=== PATIENT | male | born 1955 | race Caucasian/White ===

== ENCOUNTER 2020-01-12 13:11 | Emergency (ER) | payer MEDICARE, OTHER, SELFPAY ==
[2020-01-12 13:13] VITALS: BP 147/99; PULSE 81; RESP 18; TEMP 36.9; O2SAT 98; BMI 35.2
--- NOTE | 2020-01-12 14:05 | ED.VIS.GEN ---
History of Present Illness Chief Complaint: Flank Pain Informant: Patient Onset: Today, Hours Context: Sudden Onset Timing: Continuous, Waxes and wanes Quality: Pain Location: Flank radiating anteriorly Current Severity: Severe Maximum Severity: Severe Worsened by: Nothing Relieved by: Nothing Associated Symptoms: Nausea and vomiting Narrative: Velasquez is a 64-year-old male who recently had a cervical fusion anterior approach who presents with acute flank pain rating anteriorly with mild hematuria. He does report nausea vomiting. He denies fever, chills or night sweats. He denies known history of ureteral/renal lithiasis. He thinks he may have had one 13 years ago. He denies headache, visual, ocular auditory symptoms. He denies cardiac respiratory symptoms. He denies any significant past medical history. He has no contraindication to NSAIDs. Prior similar symptoms: No Recent Illness/Hospitalization: Yes - Past Medical History (1) No significant past medical history Status: Acute Past Medical History - Allergies and Home Meds Allergies/Adverse Reactions: Allergies CORNEL Inhibitors Allergy (Verified 01/12/20 14:14) Unknown MUSCLE WEAKNESS Primary Care Physician: Tres Lopez DO [Primary Care Provider] - Prior records reviewed: No Past Medical History: None Surgical History: - - Focal effusion at [facility] Lives: Spouse/ Significant Other Smoking Status: Former smoker Alcohol: Rare Drugs: None Review of Systems General: Denies: Chills, Fever, Malaise, Sweats ENT: Denies: Rhinorrhea, Sore throat Cardiovascular: Denies: Chest pain, Palpitations Respiratory: Reports: Cough - Patient reports cough is chronic.. Denies: Dyspnea, Sputum, Dyspnea on exertion Gastrointestinal: Reports: Abdominal pain, Nausea, Vomiting. Denies: Diarrhea, Melena, Hematochezia Genitourinary: Reports: Hematuria. Denies: Dysuria, Frequency Musculoskeletal: Reports: Back pain. Denies: Myalgias, Arthralgias, Neck pain, Swelling, Extremity Pain, -, - Skin: Denies: Rash, Wounds Neurological: Denies: Headache, Weakness, Numbness Hematologic: Denies: Easy bruising, Easy bleeding Physical Exam Vital Signs/Narrative: Vital Signs Temp Pulse Resp BP Pulse Ox 01/12/20 13:13 98.5 F 81 18 147/99 H 98 Inital Vital Signs reviewed: Yes General: Well nourished, Well developed, Acute Distress Head: Normocephalic, Atraumatic. Negative for: Trauma, Tenderness Eyes: Perrl, EOMI. Negative for: Pale conjunctiva, Scleral icterus ENT: No rhinorrhea, TM's clear Neck: Supple, Nontender, No lymphadenopathy, No JVD, - - Scar inferior anterior right neck due to recent cervical fusion Cardiovascular: Regular rate, Regular rhythm, No murmurs, Normal S1, Normal S2 Respiratory: No distress, CTA bilaterally, Chest nontender Abdomen: Soft, Nontender, Nondistended, Normal bowel sounds Extremities: Nontender, No edema Skin: Normal color, No rash, No Trauma. Negative for: Cyanosis, Diaphoresis, Jaundice Neurological: Alert, Oriented x3, Cranial nerves II-XII grossly intact, Normal Strength, Normal Sensation Psychological: Normal affect Diagnostic/Tx/Re-eval Impressions Abdomen/Pelvis CT 01/12/20 15:07 IMPRESSION: There is a 3.2 mm stone at the left UVJ causing left-sided hydronephrosis, and hydroureter with perinephric and periureteral inflammatory stranding. Remaining solid organs of the abdomen are unremarkable Small bowel ileus Sigmoid diverticulosis Degenerative bony changes Electronically Signed: Aayush Jurado MD at 15:53 EDT , Service support , 01/12/20 15:07 Abdomen/Pelvis without Cont [CT] Stat Laboratory Results 01/12/20 01/12/20 01/12/20 13:21 13:21 15:30 WBC 8.7 RBC 5.24 Hgb 16.0 Hct 46.2 MCV 88.2 MCH 30.5 MCHC 34.6 RDW Std Deviation 37.6 RDW Coeff of Charlie 11.8 Plt Count 333 MPV 9.4 Immature Gran % (Auto) 0.100 Neut % (Auto) 75.4 H Lymph % (Auto) 15.0 L [place] % (Auto) 7.9 Eos % (Auto) 1.0 Baso % (Auto) 0.6 Absolute Neuts (auto) 6.5 Absolute Lymphs (auto) 1.30 Nucleated RBC % 0 Sodium 137 Potassium 3.8 Chloride 107 Carbon Dioxide 24.0 Anion Gap 6 BUN 16 Creatinine 1.18 Estim Creat Clear Calc 51.56 Est GFR (MDRD) Af Amer 79 Est GFR (MDRD) Non-Af 66 BUN/Creatinine Ratio 13.6 Glucose 99 Calcium 9.0 Urine Color Yellow Urine Clarity Clear Urine pH 6.0 Ur Specific [place] 1.015 Urine Protein Negative Urine Glucose (UA) Normal Urine Ketones 5 H Urine Occult Blood Negative Urine Nitrite Negative Urine Bilirubin Negative Urine Urobilinogen Normal Ur Leukocyte Esterase Negative Urine RBC 0 SEEN Urine WBC 0 SEEN Ur Squamous Epith Cells 0 SEEN Urine Bacteria 0 SEEN Urine Mucus 0 SEEN It was reassessed again at 1800. He is resting comfortably. He was discharged with prescription for Percocet and Naprosyn and referred to urologist. - Medical Decision Making Abrupt onset of flank pain rating anteriorly with nausea and vomiting and hematuria suspect patient has an obstructing ureteral stone. Appropriate blood work was ordered to assess renal function, white count and H&H. He was medicated with 4 mg of Zofran, 4 mg of morphine and 15 mg of Toradol IV push. CT of the abdomen pelvis without contrast was ordered to determine size and location of stone and to verify that patient does have an obstructing stone. Patient was reassessed at 1510. He is not pain-free but states the pain is markedly better. He is no longer writhing pain. He is now smiling talking to his . ED Disposition - Plan for ED Patient: Disposition: Home or Assisted Living Diagnosis: Hydronephrosis with ureteral calculus Instructions: ED Renal Stone w Colic Prescriptions: Naproxen [Naprosyn] 500 mg PO BID #14 tab Prescription Printed Oxycodone HCl/Acetaminophen [Percocet 5/325] 1 tab PO Q6H PRN PRN 5 Days #20 tab PRN Reason: left flank pain Prescription Printed Referrals: Tres Lopez DO [Primary Care Provider] - Pk Boyd MD [STAFF PHYSICIAN] - 5-7 Days
[2020-01-12] MEDS: Morphine 4 MG/ML Syringe IV (14:18)
[2020-01-12] MEDS: Ondansetron 4 MG/2 ML Vial IV (14:18)
[2020-01-12] MEDS: 0.9% Normal Saline 1,000 ML 250 ML IV (14:18)
[2020-01-12] MEDS: Ketorolac 30 MG/ML Syringe 15 MG IV (14:18)
[2020-01-12 14:58] LABS: Absolute Neutrophil Count 6.5 X10^3/uL (2.0-7.7); Basophil# 0.05 X10^3/uL; Basophil% 0.6 % (0-1); Eosinophil# 0.09 X10^3/uL; Hematocrit 46.2 % (40-54); Mean Corp Hgb Conc 34.6 g/dL (32-36); Mean Corpuscular Hgb 30.5 pg (27.0-32.0); Mean Corpuscular Volume 88.2 fL (80-94); Mean Platelet Vol. 9.4 fl (6.2-12.0); Monocyte# 0.69 X10^3/uL; Monocyte% 7.9 % (0-10); NRBC Flagged by Analyzer 0 % (0-5); Neutrophil # 6.54 X10^3/uL (2.7-7.7); Neutrophil % 75.4 % (47-70); Platelet Count 333 K/mm3 (150-450); RBC Distribution Width CV 11.8 % (11.6-14.6); RBC Distribution Width SD 37.6 fl (35.1-43.9); Red Blood Count 5.24 M/mm3 (4.6-6.2); White Blood Count 8.7 K/mm3 (4.4-11.0)
--- NOTE | 2020-01-12 15:07 | CT_ITS ---
STUDY: CT ABDOMEN AND PELVIS WITHOUT CONTRAST REASON FOR EXAM: Male, 64 years old. LEFT FLANK PAIN, N/V, hematuria. Hx of HTN and kidney stones. Prior lumbar recon, cervical fusion, lt shoulder replacement and rt hip replacement RADIATION DOSAGE (If Supplied By Facility): CTDIvol = ( 24.21 ) mGy, DLP = ( 1176.41 ) mGycm TECHNIQUE: Transaxial images were obtained from the dome of the diaphragm to the symphysis pubis without oral contrast, and without intravenous contrast. Sagittal and coronal images were reconstructed. Individualized dose optimization techniques were used for this CT. COMPARISON: None. FINDINGS: The visualized lung bases are unremarkable. The visualized portions of the heart are within normal limits. Normal liver. Normal gallbladder and extrahepatic biliary system. Normal spleen. Normal pancreas. Normal bilateral adrenal glands. Normal right kidney. Left kidney shows hydronephrosis, hydroureter, perinephric and periureteral inflammatory stranding. Findings are due to a 3.2 mm stone at the left UVJ seen on axial image 94, and coronal recon image 86. Normal visualized stomach. Multiple nondistended fluid-filled small bowel loops are noted consistent with ileus. Scattered sigmoid diverticulosis without CT evidence of acute diverticulitis. The appendix is visualized and appears normal. Appendix best seen on coronal recon image 72 Normal abdominal aorta. Normal inferior vena cava. Normal retroperitoneum. Normal urinary bladder. Normal abdominal wall. There are diffuse degenerative changes of the visualized lumbar spine, and pelvis, replaced right hip joint. CT/Abdomen/Pelvis without Cont IMPRESSION: There is a 3.2 mm stone at the left UVJ causing left-sided hydronephrosis, and hydroureter with perinephric and periureteral inflammatory stranding. Remaining solid organs of the abdomen are unremarkable Small bowel ileus Sigmoid diverticulosis Degenerative bony changes Electronically Signed: Aayush Jurado MD at 15:53 EDT , Service support ,
[2020-01-12 15:13] LABS: Anion Gap 6 (5-15); BUN 16 mg/dL (7-18); BUN/Creat Ratio 13.6 RATIO (10-20); Chloride 107 mmol/L (98-107); Creatinine, Serum 1.18 mg/dL (0.70-1.30); EST Glomerular Filtration Rate 66 mL/min (>60); Est Glom Filt Rate - Afr Amer 79 mL/min (>60); Estimated Creatinine Clearance 51.56 ml/min; Glucose 99 mg/dL (74-106); Potassium 3.8 mmol/L (3.5-5.1); Sodium Level 137 mmol/L (136-145)
[2020-01-12 15:43] LABS: Bacteria 0 SEEN /hpf (None Seen); Mucous, Urine 0 SEEN /hpf (<or=2+); Red Blood Cells-Urine 0 SEEN /hpf (0-5); Squamous Epithelial Cells - UA 0 SEEN /hpf (0-5); White Blood Cells 0 SEEN /hpf (0-5)
[2020-01-12 15:47] LABS: Color, Urine Yellow (Yellow); Glucose, Dipstick Normal (Normal); Ketone-Dipstick 5 mg/dl (Negative); Leukocyte Esterase-Dipstick Negative /ul (Negative); Nitrite-Dipstick Negative (Negative); Occult Blood-Urine Negative /ul (Negative); Protein-Dipstick Negative (Negative); Specific Gravity, Urine 1.015 (1.002-1.030); Urine Bilirubin Dipstick Negative (Negative); Urine Clarity Clear (Clear); Urine Urobilinogen Normal (Normal)
[2020-01-12 15:50] VITALS: BP 158/84; PULSE 69; RESP 18; O2SAT 99
[2020-01-12 17:46] VITALS: BP 156/90; PULSE 62; RESP 18; O2SAT 97
== END 2020-01-12 18:23 | disposition home or self-care (01) ==
PROVIDERS: Emergency Provider Emergency Medicine; PCP Student in an Organized Health Care Education/Training Program
DX: N13.2 Hydronephrosis with renal and ureteral calculous obstruction (principal); Z87.891 Personal history of nicotine dependence
CPT/HCPCS: 74176; 80048; 81001; 85025; 96361; 96374; 96375; 99283; J7030; A4216; J2405

== ENCOUNTER → 2020-02-07 | Outpatient (CLI) | payer MEDICARE, OTHER, SELFPAY ==
[2020-01-12 13:13] VITALS: BMI 35.2
--- NOTE | 2020-02-07 10:05 | RAD_ITS ---
STUDY: X-RAY - ABDOMEN/PELVIS REASON FOR EXAM: Male, 64 years old. KIDNEY STONE TECHNIQUE: Two AP supine views of the abdomen and pelvis. COMPARISON: None. FINDINGS: Normal visualized lung bases. There is an unremarkable bowel gas pattern. There is no demonstrated free abdominal air. The visualized liver, spleen and kidneys are grossly normal in size and morphology. No suspicious calcifications overlying either renal shadow, or along the expected course of either ureter. However, one could be obscured by the overlying bowel gas and stool Normal soft tissue structures. There are diffuse degenerative changes of the visualized lumbar spine. Replaced right hip joint free of complication RAD/Abdomen Single View IMPRESSION: No acute findings Electronically Signed: Aayush Jurado MD at 11:00 EDT , Service support ,
--- NOTE | 2020-02-07 11:08 | CT_ITS ---
STUDY: CT ABDOMEN AND PELVIS WITHOUT CONTRAST REASON FOR EXAM: Male, 64 years old. Left flank pain and hematuria 3 weeks ago. Prior hip replacement, hypertension. RADIATION DOSAGE (If Supplied By Facility): CTDIvol = ( 19.23 ) mGy, DLP = ( 931.78 ) mGycm TECHNIQUE: Transaxial images were obtained from the dome of the diaphragm to the symphysis pubis without oral contrast, and without intravenous contrast. Sagittal and coronal images were reconstructed. Individualized dose optimization techniques were used for this CT. COMPARISON: 01/12/2020 FINDINGS: The visualized lung bases are unremarkable. The visualized portions of the heart are within normal limits. Normal liver. Normal gallbladder and extrahepatic biliary system. Normal spleen. Normal pancreas. Normal bilateral adrenal glands. Normal right kidney. Normal left kidney. Normal visualized stomach. Normal small intestine. There are multiple colonic diverticula consistent with diverticulosis. The appendix is visualized and appears normal. Appendix best seen on coronal recon images 69-75 Normal abdominal aorta. Normal inferior vena cava. Normal retroperitoneum. Normal urinary bladder. Normal abdominal wall. There are diffuse degenerative changes of the visualized lumbar spine, and pelvis. Replaced right hip joint free of complication CT/Abdomen/Pelvis without Cont IMPRESSION: No suspicious solid organ abnormality, specifically, no obstructive uropathy. Sigmoid diverticulosis No free intraperitoneal fluid, air, or suspicious adenopathy Electronically Signed: Aayush Jurado MD at 11:45 EDT , Service support ,
== END | disposition home or self-care (01) ==
LOC: RAD 09:48 → CT 11:07
PROVIDERS: PCP Student in an Organized Health Care Education/Training Program; Referring Provider Nurse Practitioner Adult Health; Visit Provider Nurse Practitioner Adult Health
DX: N20.1 Calculus of ureter (principal)
CPT/HCPCS: 74018; 74176

== ENCOUNTER → 2020-03-01 | Outpatient (CLI) | payer MEDICARE, OTHER, SELFPAY ==
--- NOTE | 2020-03-01 12:40 | CT_ITS ---
STUDY: CT LOWER EXTREMITY WITHOUT CONTRAST: RIGHT REASON FOR EXAM: Male, 64 years old. RIGHT KNEE DEFORMITY. KEVEN PROTOCOL. METAL ARTIFACT REDUCTION TECHNIQUE Individualized dose optimization techniques were used for this CT.? TECHNIQUE: Transaxial imaging was sagittal and coronal reconstruction. COMPARISON: None. FINDINGS: He is status post total hip arthroplasty with standard acetabular and femoral components located without periprosthetic fracture or other acute soft tissue abnormality. Multiple well-corticated fragments and one central well-corticated fragment of the greater trochanter. The included right hemipelvis is intact without fracture deformity. 6 mm cyst of the acetabular roof. The knee is located. Negative for fracture of the tibia, fibula or patella. No substantial joint effusion. There is severe narrowing and mild marginal osteophytosis of the medial compartment. There is mild narrowing and marginal osteophytosis of the lateral compartment. Mild narrowing and marginal osteophytosis of the patellofemoral compartment. No soft tissue abnormality. The ankle and hindfoot are located. Normal talonavicular, subtalar and calcaneocuboid articulations. Tibiotalar joint without major arthritic changes. One tiny well corticated fragment anterior lip of the tibia at the tibiotalar joint. Minimal hypertrophic changes at the tip of the medial malleolus. Small benign bone island of the talus otherwise normal talus and calcaneus and navicular. No soft tissue abnormalities. CT/Extremity Lower without Contra IMPRESSION: Status post right total hip arthroplasty with no bone or joint abnormalities. Degenerative arthrosis of the knee as described above. Negative for major arthritic, degenerative or other acute findings of the ankle. Electronically Signed: Nuzhat Pratt MD at 16:08 EDT , Service support ,
== END | disposition home or self-care (01) ==
PROVIDERS: PCP Student in an Organized Health Care Education/Training Program; Referring Provider Specialist; Visit Provider Specialist
DX: M21.161 Varus deformity, not elsewhere classified, right knee (principal)
CPT/HCPCS: 73700

== ENCOUNTER 2020-03-22 07:12 | Observation (INO) | payer MEDICARE, OTHER, SELFPAY ==
[2020-03-01 14:35] LABS: Absolute Lymphocyte Count 1.63 X10^3/uL (0.83-4.51); Absolute Neutrophil Count 2.6 X10^3/uL (2.0-7.7); Basophil# 0.04 X10^3/uL; Basophil% 0.8 % (0-1); Eosinophil# 0.12 X10^3/uL; Eosinophils% 2.5 % (0-5); Hematocrit 45.6 % (40-54); Hemoglobin 15.6 g/dL (13.0-16.5); Lymphocyte # 1.63 X10^3/ul (4.0); Lymphocyte % 33.9 % (19-41); Mean Corp Hgb Conc 34.2 g/dL (32-36); Mean Corpuscular Volume 87.7 fL (80-94); Mean Platelet Vol. 9.5 fl (6.2-12.0); Monocyte# 0.42 X10^3/uL; Monocyte% 8.7 % (0-10); NRBC Flagged by Analyzer 0 % (0-5); Neutrophil # 2.59 X10^3/uL (2.7-7.7); Neutrophil % 53.9 % (47-70); Platelet Count 267 K/mm3 (150-450); RBC Distribution Width CV 12.6 % (11.6-14.6); RBC Distribution Width SD 40.1 fl (35.1-43.9); White Blood Count 4.8 K/mm3 (4.4-11.0)
[2020-03-01 14:48] LABS: Anion Gap 7 (5-15); BUN 17 mg/dL (7-18); BUN/Creat Ratio 16.8 RATIO (10-20); Calcium,Total 8.8 mg/dL (8.5-10.1); Chloride 107 mmol/L (98-107); Creatinine, Serum 1.01 mg/dL (0.70-1.30); EST Glomerular Filtration Rate 79 mL/min (>60); Est Glom Filt Rate - Afr Amer 95 mL/min (>60); Glucose 103 mg/dL (74-106); Potassium 3.6 mmol/L (3.5-5.1); Sodium Level 139 mmol/L (136-145)
[2020-03-01 17:32] LABS: Magnesium 2.4 mg/dL (1.6-2.6); Thyroid Stim Hormone (TSH) 2.01 uIU/mL (0.358-3.74)
--- NOTE | 2020-03-01 22:52 | HP.PCM_ITS ---
History and Physical History and Physical [facility] Patient Name: Johnson Nielson : 1955 From: DAYANA FARFAN PA-C DATE OF SURGERY: 03/22/2020 SCHEDULED PROCEDURE: right total knee arthroplasty HISTORY OF PRESENT ILLNESS: Preoperative history and physical exam was performed on March 01, 2020. This is a 64-year-old male who has had ongoing pain in his right knee for several years. Patient has been dealing with increased right knee pain but is placed and on hold for surgery due to a cervical fusion surgery. Patient has undergone a cervical fusion and has done well. He continues to have significant knee pain on the right. Patient's pain is intermittent and sharp. He has increased pain going up and down stairs and walking. Patient wears a brace on his right knee with some relief. However he has times when he has the brace on and this causes more left knee pain. Patient has had difficult time with activities of daily living including housework, shopping, and leisure activities. He has difficult time going up and down stairs. He has tripped/stumbled due to his knee pain. Patient has attempted rest, ice, heat, elevation, cortisone injections with no relief in symptoms. Patient only had very temporary relief from the injection in both knees in July 2019. Patient has also attempted visco supplementation injections with no relief in symptoms. He is now having difficulty sleeping at nighttime. His pain can reach 7/10 with activities. He has attempted Medrol Dosepak, meloxicam, Tylenol with no relief in symptoms. He has been on tramadol at nighttime. Patient denies previous surgery on the right knee. Patient currently denies any chest pain, shortness of breath, fevers chills, or calf pain. Patient has medical history pertinent for thyroid disease and hypertension. We are obtaining surgical clearance from the primary care physician. After failing conservative measures and discussing all treatment options with Dr. Tej Montague, the patient does wish to proceed with a right total knee arthroplasty. REVIEW OF SYSTEMS: ROS: Const: Denies change in appetite, fever,or weight change. CV: Denies chest pain, heart murmur and irregular heartbeat. Resp: Denies cough, pneumonia, SOB, tuberculosis and wheezing. GI: Denies constipation, diarrhea, difficulty swallowing, heartburn, nausea, bloody stools and vomiting. : Urinary: denies incontinence. Musculo: Reports leg swelling and limp, but denies trouble walking and weakness. Skin: Denies Raynaud's, history of shingles and tattoo. Neuro: Denies ambulatory dysfunction, dizziness, numbness/tingling and tremor. Psych: Denies anxiety, insomnia and stress. Randall/Lymph: Denies anemia, bleeding/bruising tendency and past transfusion. Reviewed, no changes. 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 Personal Habits: Cigarette Use: Former.Alcohol: Has consumed alcohol in the past.Drug Use: Denies Use.Exercise Type: Exercises twice a week. Reviewed, no changes. VITALS: Ht: 64 Wt: 209lb Wt k.802 BMI: 35.9 BP: 152/92 Pulse: 64 Resp: 12 T: 97.6 T: 36.4C ALLERGIES: No Known Drug Allergy MEDICATIONS: Meloxicam 7.5 mg 1 by mouth twice a day, Levothyroxine Sodium 25 mcg 1 by mouth every day, Norvasc 10 mg 1 tab PO daily, Aspirin 81 81 mg 1 po qd prn, Tramadol HCL 50 mg 1-2 by mouth every 6 hours as needed pain PRE-OP EXAM: General appearance:NORMAL Other: Eyes: Conjunctivae and lids: NORMAL Pupils: ERR Ears, Nose, Mouth, and Throat: NORMAL Other: Inspection of lips, teeth and gums: NORMAL Other: Neck: Examination of neck: no masses noted. Respiratory: Assessment of respiratory effort: NORMAL Other: Auscultation of lungs: clear to auscultation no wheezes, rhonchi or rales. Cardiovascular: Auscultation of heart: regular rate and rhythm, no murmurs, gallops or rubs. Exam of carotid arteries: NORMAL Other: Gastrointestinal: Exam of abdomen: soft, nontender, nondistended bowel sounds present. PHYSICAL EXAMINATION: Patient does walk with an antalgic gait. He currently uses a brace with the right knee. Right knee has mild effusion. There is tenderness to palpation over the medial joint line. Patient has correctable varus alignment. Range of motion: 0 extension 120 flexion. Sensation intact to light touch. Neurovascularly intact. IMAGING STUDIES: Previous x-rays of the right knee reveal varus alignment with medial joint space narrowing, subchondral sclerosis, osteophyte formation consistent with severe stage IV medial compartment osteoarthritis. IMPRESSION: 1. Severe stage IV right knee osteoarthritis 2. Severe left knee osteoarthritis 3. Hypertension 4. Thyroid disease 5. 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 Recent cervical fusion September 2019 PLAN: Dr. Tej Montague did discuss and review with the patient all treatment options including surgical versus nonsurgical options. Patient does wish to proceed with the above-stated procedure. Potential risks, benefits, and complications of the procedure were discussed in detail including but not limited to , infection, nerve and blood vessel damage, persistent pain, numbness, tingling, paresthesias, blood clot, pulmonary embolism, and requirement for possible further surgery. The patient expressed full understanding and has no further questions for the doctor. Patient does agree to proceed with the above-stated procedure and has signed the surgery consent form. We discussed the current risks associated with COVID 19. This does include the risk of exposure while in the hospital. Patient was reassured local hospitals have low infection rates and are taking all necessary precautions to avoid exposure to patients. In addition, we discussed strategies that can be used to help limit exposure including those that limit the patient's time in the hospital. Also using strategies to limit the patient's need for continued inpatient services after being discharged from the hospital. Patient was notified that we will need to comply with any screening or testing the hospital wishes to perform or that surgery may be delayed for any positive results. This dictation was created using voice recognition software. Phonetic and/or grammatical errors may exist. ___ I have re-examined the patient. There are no clinical changes since date of exam. ___ See progress notes for changes. ___ Dictated on admission Date: Time: Signature:
--- NOTE | 2020-03-15 09:56 | EKG12_ITS ---
Test Reason : PRE O Blood Pressure : / mmHG Vent. Rate : 061 BPM Atrial Rate : 061 BPM P-R Int : 148 ms QRS Dur : 086 ms QT Int : 432 ms P-R-T Axes : 025 016 079 degrees QTc Int : 434 ms Normal sinus rhythm Nonspecific T wave abnormality Abnormal ECG Confirmed by LEE TOVAR, CORINA ([id number]), publications editor KEN ARTHUR ([id number]) on 03/23/2020 8:34:07 AM Referred By: Tej Montague Confirmed By:JARAD HOWARD MD
[2020-03-22] VITALS (15 sets, daily range): BP systolic 117–133; BP diastolic 63–82; PULSE 63–89; RESP 16–18; TEMP 35.9–36.9; O2SAT 94–100; BMI 37.6
[2020-03-22] MEDS: Gabapentin 600 MG Tablet PO (07:23)
[2020-03-22] MEDS: Acetaminophen 500 MG Tablet 1000 MG PO ×2 (07:23→17:11)
[2020-03-22] MEDS: Celecoxib 200 MG Capsule 400 MG PO (07:23)
[2020-03-22] MEDS: Lactated Ringers 1,000 ML 999 ML IV ×2 (07:25→11:59)
[2020-03-22 08:11] LABS: Bedside Glucose 87 mg/dL (70-110)
[2020-03-22] MEDS: Cefazolin 2 GM in 0.9% Normal Saline 100 ML IV (09:00)
[2020-03-22] MEDS: Lactated Ringers 1,000 ML 75 ML IV (09:00)
[2020-03-22] MEDS: dexAMETHasone 10 MG/ML Vial IV (09:15)
--- NOTE | 2020-03-22 10:37 | OP.PCM_ITS ---
Report of Operation Date of Procedure: 03/22/20 Pre-Operative Diagnosis: Right knee primary osteoarthritis Post-Operative Diagnosis: Right knee primary osteoarthritis Surgery/Procedure Performed:: Right minimally invasive robot-assisted total knee replacement Description of Surgical Findings:: Stable knee with good patella tracking nursing home admissions director: Jess Bennett Type of Anesthesia:: Spinal Anesthesiologist: Jose Fletcher Special Medications: 2 g Ancef, 1 g TXA at incision, 1 g TXA closure, 10 mg Decadron, joint cocktail (5 mg Duramorph, 30 mL of 0.5% Ropivicaine, 1000 units of epinephrine, 30 mg of Toradol) Specimen's removed: Bony cuts Estimated Blood Loss (mL): 50 Fluids Replaced: 1100 mL crystalloid Description of Procedure: Implants used: 1. Katty size 5 triathlon cruciate retaining distal femoral press-fit component 2. [place] size 5 press-fit tritanium tibial baseplate 3. [place] X3 9 mm CS polyethylene 4. [place] X3 35 mm asymmetric patella Brief history operative indications: 64-year-old M with history of right knee osteoarthritis with radiographic findings with loss of joint space, osteophyte formation and subchondral sclerosis. Failed conservative measures as mentioned in the H&P. Discussion of total knee arthroplasty as well as risk and benefits were discussed the patient including but not limited to blood loss, DVTs, PEs, neurovascular damage, general risk of anesthesia including loss of life, and stiffness or instability were discussed with patient. Patient demonstrated understanding and was able to sign informed consent. Procedure: On the date of procedure patient's right lower extremity was marked in the preoperative area. The patient was then taken back to the operating room where the patient was placed on the table in the supine position. All bony prominences were identified a well-padded. Anesthesia assumed control of the C-spine and airway and remained controlled throughout the remainder of the procedure. A tourniquet was placed on the right upper thigh and the leg was prepped in a sterile fashion. The surgeon then scrubbed at this time .Upon reentering the room right lower extremity was draped in a standard orthopedic fashion. A timeout was then called and everyone agreed upon the side, the site, the procedure to be performed, patient's identity and antibiotics given. Esmarch bandage was used to exsanguinate the extremity and the tourniquet was placed up to 250 mmHg with the knee in flexion. A midline skin incision was made and sharp dissection was taken down through skin subcutaneous tissue and fat. The standard medial parapatellar incision was made and the patella was subluxed laterally. An Appropriate deep MCL release was done and the fat pad was resected. Our attention was then directed to the patella. The patella was everted and a flat resection was made. The knee was then flexed up in 2 femoral pins were placed inside the incision and 2 tibial pins were placed outside the incision in the medial tibia bicortically. Once this was completed the 2 checkpoints in the femur and tibia were placed. Knee was then flexed up and the bony landmarks were registered. Once this was completed knee was taken through range of motion and manually stressed allowing us to a plan for an appropriate tibial cut. The robotic arm was brought into the field sterilely and checkpoint and saw were registered. Based on the patient's deformity the tibial cut was made in 1 degree of varus. At this time the tensioner was then placed in the joint and ligament tension was checked at 90 degrees and full extension. Based on the patient's ligamentous tension appropriate adjustments were made to the operative plan and ligament releases were done. Once we were happy with our operative plan with balanced flexion and extension gaps our attention was directed to the femur. The robot was brought into the field sterilely and registered. Posterior condylar cuts, anterior chamfer cuts and anterior cuts were appropriately made for a size 5 femur. When these were completed the saws were switched out in the distal femoral and posterior chamfer cuts were made. Protecting the soft tissue throughout this time. A size 5 tibial base plate was selected. the knee was flexed to 90 degrees and the soft tissues and posterior osteophytes were removed from the joint. 40 cc of the periarticular injection was injected into the posterior medial corner of the joint. The appropriate trials were then placed on the femur and tibia. A trial polyethylene was trialed to ensure proper balancing and stability of the knee. The appropriate tibial internal rotation was then marked with a bovie. Our attention was then directed to the patella. The lug holes were drilled and the patella trial was placed. Patellar tracking was checked and deemed appropriate. Once we were happy lug holes were drilled for the femur and trial components were removed. the tibia was subluxed and pinned into place and the keel was punched and drilled appropriately. Final components were verified and opened, and cement was mixed in a vacuum. [employer] cement was used. The wound was copiously irrigated with normal saline. When the cement was ready the components were impacted into place starting with the tibia, femur and finally cementing the patella. The trial poly component was placed and the knee was placed in full extension. All excess cement was removed in the process. Once the cement had cured the tracking, alignment and balance were verified and a size 9 mm CS polyethylene component was placed. Once the final components were placed an Irrisept lavage was performed and the wound was copiously irrigated with normal saline solution and the periarticular injection was given. The wound was closed in a layer vasquez fashion using #1 vicryl interrupted sutures for the arthrotomy, 2-0 interrupted Vicryl suture for the subcuticular layer and dinorah for final skin closure. A sterile compressive dressing was then placed. The patient was then awakened from anesthesia, transf erred to the [facility] and transferred to the PACU for recovery. Post op plan DVT ppx: ASA 81mg BID, thigh high compression stockings Follow up: in office in 2 weeks for wound check PT: to start POD #0 at hospital, outpatient PT should be arranged. Due to the complexity of this case robotic arm was used to assist in the surgery to improve accuracy and clinical outcomes. - Complications No intraoperative complications - Admit VTE Documentation VTE Present on Admission: No VTE Mechan Device Prophylaxis: SCD's, Thigh High PIOTR Hose VTE Pharm Prophylaxis ordered?: Yes
[2020-03-22] MEDS: Scopolamine 1mg/72hr Patch 1 PATCH TD (11:37)
--- NOTE | 2020-03-22 12:08 | RAD_ITS ---
STUDY: X-RAY - RIGHT KNEE REASON FOR EXAM: Male, 64 years old. POST OP TECHNIQUE: 2 view(s) of the knee. COMPARISON: March 01 2020 FINDINGS: There is expected appearance of total knee arthroplasty. There are no unexpected radiopaque foreign bodies. There is postsurgical interstitial gas and ventral anterior skin incision outlined by skin dinorah. RAD/Knee 1 or 2 Views IMPRESSION: Expected early postoperative appearance of total knee arthroplasty. Electronically Signed: Mary Martinez, at 12:23 EDT Tel , Service support ,
[2020-03-22] MEDS: Morphine 2 MG/ML Syringe IV ×2 (13:23→14:03)
[2020-03-22] MEDS: 0.9% NaCl Peripheral Flush Adult/Peds IV ×2 (13:24→14:02)
[2020-03-22] MEDS: Lactated Ringers 1,000 ML 125 ML IV ×2 (13:29→21:43)
[2020-03-22] MEDS: Aspirin 81 MG TAB.CHEW PO (17:11)
[2020-03-22] MEDS: Ensure Surgery 237 ML LIQUID PO (17:14)
[2020-03-22] MEDS: Cefazolin 1 GM/50 ML BAG IV (17:33)
[2020-03-22] MEDS: oxyCODONE 5 MG Tablet PO (17:40)
[2020-03-22] MEDS: Senna/Docusate Sodium 1 Tablet 2 TABLET PO (21:43)
[2020-03-23 00:10] VITALS: BP 130/66; PULSE 64; RESP 16; TEMP 36.8; O2SAT 95
[2020-03-23] MEDS: Cefazolin 1 GM/50 ML BAG IV (00:11)
[2020-03-23] MEDS: Acetaminophen 500 MG Tablet 1000 MG PO ×2 (00:12→06:25)
[2020-03-23] MEDS: oxyCODONE 5 MG Tablet PO ×3 (00:12→12:08)
[2020-03-23 00:18] VITALS: BMI 37.6
[2020-03-23 04:10] VITALS: BP 133/68; PULSE 60; RESP 16; TEMP 36.8; O2SAT 96
[2020-03-23 05:43] LABS: Hematocrit 38.7 % (40-54); Hemoglobin 12.9 g/dL (13.0-16.5); Mean Corp Hgb Conc 33.3 g/dL (32-36); Mean Corpuscular Hgb 30.1 pg (27.0-32.0); Mean Corpuscular Volume 90.4 fL (80-94); Mean Platelet Vol. 9.9 fl (6.2-12.0); Platelet Count 261 K/mm3 (150-450); RBC Distribution Width CV 13.1 % (11.6-14.6); RBC Distribution Width SD 42.9 fl (35.1-43.9); Red Blood Count 4.28 M/mm3 (4.6-6.2); White Blood Count 11.3 K/mm3 (4.4-11.0)
[2020-03-23 05:57] LABS: Anion Gap 4 (5-15); BUN 15 mg/dL (7-18); BUN/Creat Ratio 15.2 RATIO (10-20); Calcium,Total 8.5 mg/dL (8.5-10.1); Chloride 106 mmol/L (98-107); Creatinine, Serum 0.99 mg/dL (0.70-1.30); EST Glomerular Filtration Rate 81 mL/min (>60); Est Glom Filt Rate - Afr Amer 98 mL/min (>60); Estimated Creatinine Clearance 61.46 ml/min; Glucose 115 mg/dL (74-106); Potassium 4.8 mmol/L (3.5-5.1); Sodium Level 136 mmol/L (136-145)
[2020-03-23] MEDS: Levothyroxine 25 MCG TABLET PO (06:25)
[2020-03-23] MEDS: 0.9% NaCl Peripheral Flush Adult/Peds IV (06:26)
[2020-03-23] MEDS: amLODIPine 10 MG Tablet PO (07:27)
[2020-03-23] MEDS: Aspirin 81 MG TAB.CHEW PO (07:27)
[2020-03-23] MEDS: Famotidine 20 MG Tablet PO (07:28)
[2020-03-23] MEDS: Senna/Docusate Sodium 1 Tablet 2 TABLET PO (07:28)
[2020-03-23] MEDS: Ensure Surgery 237 ML LIQUID PO ×2 (07:31→12:10)
[2020-03-23 07:51] VITALS: BP 128/75; PULSE 56; RESP 16; TEMP 36.8; O2SAT 98
--- NOTE | 2020-03-23 08:13 | PCM.PN.ORT ---
Subjective: The patient was sitting in bedside chair upon examination. Patient denies any chest pain, shortness of breath, dizziness, lightheadedness, nausea or vomiting, or calf pain. Pain is controlled on medications. No adverse overnight events. Overall patient appears to be doing well in his room. Objective: Vital signs stable and afebrile. Patient is able to plantarflex and dorsiflex actively. Sensation is intact to light touch to saphenous, sural, superficial and deep peroneal, and tibial distribution. Dressing mild drainage over the distal one third without contacting 2 borders. Mild drainage over the distal pin site Negative Homans bilaterally, negative signs and symptoms of DVT. - Physical Exam Vitals/I&O's: Vital Signs Temp Pulse Resp BP Pulse Ox 98.2 F 56 L 16 128/75 H 98 03/23/20 07:51 03/23/20 07:51 03/23/20 07:51 03/23/20 07:51 03/23/20 07:51 Oxygen Flow Rate (L/min) 6 Oxygen Delivery Method Room Air Weight: 99.4 kg Body Mass Index (BMI) 37.6 Intake and Output for Last 24 Hours 03/21/20 03/22/20 03/23/20 23:59 23:59 23:59 Intake Total 4905.50 / 4905.50 3650.00 / 3650.00 Output Total 700 / 700 Balance 4905.50 / 4905.50 2950.00 / 2950.00 General: Alert, Oriented x3, Cooperative, No apparent distress Laboratory Results 03/23/20 05:09: WBC 11.3 H, RBC 4.28 L, Hgb 12.9 L, Hct 38.7 L, MCV 90.4, MCH 30.1, MCHC 33.3, RDW Std Deviation 42.9, RDW Coeff of Charlie 13.1, Plt Count 261, MPV 9.9 03/23/20 05:09: Sodium 136, Potassium 4.8, Chloride 106, Carbon Dioxide 26.0, Anion Gap 4 L, BUN 15, Creatinine 0.99, Estim Creat Clear Calc 61.46, Est GFR (MDRD) Af Amer 98, Est GFR (MDRD) Non-Af 81, BUN/Creatinine Ratio 15.2, Glucose 115 H, Calcium 8.5 Current Medications Acetaminophen (Tylenol) 1,000 mg PO Q8H [facility] Last Admin: 03/23/20 06:25 Dose: 1,000 mg Documented by: Amlodipine Besylate (Norvasc) 10 mg PO DAILY [facility] Last Admin: 03/23/20 07:27 Dose: 10 mg Documented by: [facility], [facility]) [facility] Admin: 03/23/20 07:27 Dose: 81 mg Documented by: Cholecalciferol (Vitamin D (25mcg)) 1,000 unit PO DAILY [facility] Last Admin: 03/23/20 07:28 Dose: 1,000 unit Documented by: Enteral Nutritional Formula (Ensure Surgery) 237 ml PO TIDCM [facility] Last Admin: 03/23/20 07:31 Dose: 237 ml Documented by: Famotidine (Pepcid) 20 mg PO DAILY [facility] Last Admin: 03/23/20 07:28 Dose: 20 mg Documented by: Furosemide (Lasix) 20 mg PO DAILY PRN PRN Reason: EDEMA Influenza Virus Vaccine Quadrival (Flucelvax /Fluzone ) 0.5 ml IM .ONCE ONE Stop: 03/23/20 10:01 Last Admin: 03/23/20 07:32 Dose: 0.5 ml Documented by: Insulin Human Lispro (Humalog Kwikpen (Bk)) 1 - 6 unit SC Q4H PRN PRN; Protocol PRN Reason: BG>/= 180, SEE PROTOCOL Ketorolac Tromethamine (Toradol (Bkc)) 15 mg IV Q6H PRN PRN PRN Reason: Pain Score 1-5/10 Stop: 03/24/20 07:13 Levothyroxine Sodium (Synthroid) 25 mcg PO DAILY@0600 [facility] Last Admin: 03/23/20 06:25 Dose: 25 mcg Documented by: Meloxicam (Mobic) 7.5 mg PO BID [facility] Morphine Sulfate () 2 - 4 mg IV Q2H PRN PRN PRN Reason: Pain Score 6-10/10 Last Admin: 03/22/20 14:03 Dose: 2 mg Documented by: Morphine Sulfate () 2 - 4 mg IV Q2H PRN PRN PRN Reason: Pain Score 6-10/10 Ondansetron HCl (Zofran) 4 mg IV Q8H PRN PRN PRN Reason: NAUSEA Oxycodone HCl (Oxyir) 5 - 10 mg PO Q4H PRN PRN PRN Reason: Pain Score 4-10/10 Last Admin: 03/23/20 06:25 Dose: 10 mg Documented by: Promethazine HCl (Phenergan) 12.5 mg IM Q6H PRN PRN; Protocol PRN Reason: NAUSEA/VOMITING Senna/Docusate Sodium (Senokot-S, Ashwini-Colace) 2 tablet PO BID [facility] Last Admin: 03/23/20 07:28 Dose: 2 tablet Documented by: Sodium Chloride () 5 - 15 ml IV UD PRN PRN Reason: SALINE FLUSH Last Admin: 03/23/20 06:26 Dose: 10 ml Documented by: Sodium Chloride () 10 - 40 ml IV UD PRN PRN Reason: SALINE FLUSH Medical Necessity - Tobacco Use Smoking Status: Former smoker Tobacco Use: Non-smoker Assessment/Plan All Active Problems No significant past medical history (Acute) 1. S/P right total knee arthroplasty POD #1 2. Continue Pain Medications: Tylenol, meloxicam, oxycodone 3. DVT Prophylaxis: Take 81 mg aspirin twice daily for 4 weeks postoperatively for DVT prophylaxis 4. PT/OT: Weightbearing as tolerated 5. H & H: 12.9/38.7, asymptomatic. Secondary to acute blood loss from surgery 6. Reactive leukocytosis: Currently 11.3, afebrile. Patient did receive Decadron intraoperatively 7. Encouraged Incentive Spirometry 8. Disposition: Orthopedically stable, plan will be for discharge home today as long as patient tolerates therapy and pain is well controlled. Patient does have outpatient physical therapy established. Prescriptions will be E scribed to [facility]. Patient will follow-up per postop instructions. Patient was instructed not to combine the tramadol he was prescribed in the past with the current oxycodone. He voiced understanding. I have reviewed the [place] Automated Rx Reporting System (OARRS) report for this patient for refill pattern and other prescriber involvement as part of the appropriate surveillance for the provision of acute and chronic controlled medications. The report was requested and reviewed on the date of this entry and was considered in the prescribing process.
--- NOTE | 2020-03-23 08:32 | DCINST_ITS ---
Discharge Diet: No Restrictions Discharge Activity: May Not Drive May shower in (days): 1 - Dressing must be intact to skin. Turn dressing away from water Ice area for (Minutes): 20 - every hour while awake. Weight Bearing Status: Weight bearing as tolerated Elevate: Operative Extremity Additional Activity Instructions:: Wear elastic stockings for 2 weeks after your surgery. Call your doctor if your incision/area has: Continuous Slow Oozing, Sudden Increased Bleeding, Increased Pain/ Swelling, Increased Redness, Foul Smelling Discharge Call your doctor if you observe: Fever of 101 or Higher, Coldness, Increased Pain, Numbness or Tingling, Change in Color, Calf discomfort, Uncontrolled pain Remove Dressing in (days):: 4 - Okay to remove dressing on March 27, 2020 Additional Instructions: Follow orthopedic postop instructions Allergies/Adverse Reactions: Allergies lisinopril Adverse Reaction (Verified 03/01/20 14:45) PT UNSURE OF REACTION Medications to take at Discharge Amlodipine Besylate [Norvasc] 10 mg PO DAILY 05/07/17 Levothyroxine [Synthroid] 25 mcg PO DAILY 05/07/17 Furosemide [Lasix] 20 mg PO DAILY PRN 01/12/20 Cholecalciferol (VIT D3) [Vitamin D3] 1,000 unit PO DAILY 03/01/20 Acetaminophen [Tylenol] 1,000 mg PO Q8H #100 tab 03/23/20 Aspirin [Aspirin, Baby] 81 mg PO BIDCM tab 03/23/20 Famotidine [Pepcid] 20 mg PO DAILY #30 tab 03/23/20 Meloxicam 15 mg PO DAILY #0 03/23/20 Oxycodone [Oxyir] 5 - 10 mg PO Q4H PRN PRN 5 Days #60 tablet 03/23/20 Senna/Docusate Sodium [Senokot-S] 2 tab PO BID #10 tab 03/23/20 The following prescriptions were given: Oxycodone [Oxyir] 5 - 10 mg PO Q4H PRN PRN 5 Days #60 tablet PRN Reason: Pain Score 4-04/01 Transmission Status: Received by [facility] Famotidine [Pepcid] 20 mg PO DAILY #30 tab Transmission Status: Pending to [facility] Senna/Docusate Sodium [Senokot-S] 2 tab PO BID #10 tab Transmission Status: Pending to [facility] Acetaminophen [Tylenol] 1,000 mg PO Q8H #100 tab Transmission Status: Pending to [facility] Primary Care Physician: Tres Lopez DO [Primary Care Provider] - Test Results: Test results from this visit will be discussed in further detail at your follow- up appointment, if applicable. Please Follow Up With: [facility] When: 03/27/20 with rush Please Follow Up With: Pardeep Ramos PA-C When: 04/05/20 @ 9:45 am
--- NOTE | 2020-03-23 10:22 | CASEMGMT ---
RN CM Assessment Note Intro role of CM to patient. Demographics, PCP verified. Patient is sitting in chair, able to participate in assessment Diagnosis: RTKR PCP: Dr. Tres Lopez Specialists: Dr. Montague Insurance: [facility] Preferred Pharmacy: [facility] Prescription Benefit: yes LNOK: S.Yodit corley Living Arrangements: one story home. has significant other to assist if needed. Tranportation: states he does not have anyone to drive him to therapy. Options offered to ask friends, shinto, do evening appts if people work during day, or use taxi. Patient is not homebound and would not qualify for [facility]. SW updated, and pt does not qualify for rides through insurance. DME: walker Patient DC Goals: Home, F/u with PT/OT @ [facility] DC Plan: Home CM available for discharge planning coordination. Contact CM for any concerns/needs that may arise. Anne NIETO RN ACM
--- NOTE | 2020-03-23 12:11 | CASEMGMT ---
Intro role of CM to patient and PERKINS form explained re: Observation status for treatment of TKR. Explained hospitalization will be paid per? insurance policy for Outpatient billing?and condition will continue to be evaluated for Inpt necessity. Also let pt know that [facility] sends paper in the billing packet with their phone number if questions arise. Discussed Pharmacy section of PERKINS form and self administered medication guideline.? Pt verbalizes understanding and does not have further questions. Form signed and placed in chart, copy to pt. HEDY TIWARI BSN CM
== END 2020-03-23 16:19 | disposition home or self-care (01) ==
LOC: SDC 11:52 → MS3 11:52
PROVIDERS: Anesthesiology; Admitting Provider Specialist; PCP Student in an Organized Health Care Education/Training Program; Referring Provider Specialist; Visit Provider Specialist
PROC: 0SRC0JZ Replacement of Right Knee Joint with Synthetic Substitute, Open Approach (ICD-10-PCS; CPT 27447; principal; 2020-03-22 08:30)
DX: M17.0 Bilateral primary osteoarthritis of knee (principal); Z23 Encounter for immunization; Z11.59 Encounter for screening for other viral diseases; Z79.899 Other long term (current) drug therapy; I10 Essential (primary) hypertension; Z87.891 Personal history of nicotine dependence
CPT/HCPCS: 01400; 27447; 64447; S2900; 36415; 73560; 80048; 82962; 83735; 84443; 85025; 85027; 87081; 87635; 93005; 96361; 96365; 96366; 96375; 96376; 97110; 97162; 97166; 97530; 97535; 99218; 99251; C1776; C9803; G0008; J7120; 90686; A4216; G0378; G0379; G0463; U0003

== ENCOUNTER 2020-03-25 11:52 | Emergency (ER) | payer MEDICARE, OTHER, SELFPAY ==
[2020-03-22 13:16] VITALS: BMI 37.6
[2020-03-25 11:52] VITALS: BP 139/78; PULSE 85; RESP 20; TEMP 36.4; O2SAT 98; BMI 36.0
--- NOTE | 2020-03-25 12:16 | ED.VIS.GEN ---
History of Present Illness Chief Complaint: Lower Extremity Injury Informant: Patient, Significant Other, - - Dr. Tej Montague Onset: Days Context: Sudden Onset Timing: Continuous Quality: Pain Location: Anterior distal right thigh, knee and proximal anterior right leg Current Severity: Severe Maximum Severity: Severe Worsened by: Any type of movement Relieved by: Nothing Associated Symptoms: No associated symptoms and specifically chest pain or shortness of breath Narrative: Is a 63-year-old male postop day 4 from a right total knee arthroplasty. He was prescribed Mobic and oxycodone. He was recently prescribed MS Contin 15 mg every 12 hours. He denies fever, chills night sweats. Denies chest pain. Denies difficulty breathing. He denies nausea or vomiting. He does report anterior right lower leg pain as previously described. There is mild swelling of the right lower extremity. His pain is anterior. There is no posterior pain. There is no radicular pain. No circumferential pain. He denies paresthesia, anesthesia or motor weakness. He states he is performing the exercises he was instructed to do. Prior similar symptoms: Yes Recent Illness/Hospitalization: Yes - Past Medical History (1) Ureterolithiasis with hydronephrosis Status: Resolved (2) History of hypertension Status: Chronic Past Medical History - Allergies and Home Meds Allergies/Adverse Reactions: Allergies lisinopril Adverse Reaction (Verified 03/25/20 11:52) PT UNSURE OF REACTION Primary Care Physician: Tres Lopez DO [Primary Care Provider] - Prior records reviewed: Yes Surgical History: - - Focal effusion at [facility] Lives: Spouse/ Significant Other Smoking Status: Never smoker Alcohol: None Drugs: None Review of Systems General: Denies: Chills, Fever, Malaise, Subjective Cardiovascular: Denies: Chest pain, Palpitations, Heart racing Respiratory: Denies: Dyspnea, Cough, Dyspnea on exertion Gastrointestinal: Denies: Nausea, Vomiting, Diarrhea, Constipation Musculoskeletal: Reports: Swelling, Extremity Pain. Denies: Myalgias, Arthralgias, Neck pain, Back pain Skin: Denies: Rash, Wounds Neurological: Denies: Weakness, Parasthesia, Numbness Hematologic: Denies: Easy bruising, Easy bleeding Allergy: Denies: Uticaria Physical Exam Vital Signs/Narrative: Vital Signs Temp Pulse Resp BP Pulse Ox 03/25/20 11:52 97.5 F L 85 20 H 139/78 H 98 Inital Vital Signs reviewed: Yes General: Well nourished, Well developed, Obese, No Acute Distress Head: Normocephalic, Atraumatic Eyes: Perrl, EOMI. Negative for: Pale conjunctiva, Scleral icterus Neck: No JVD Cardiovascular: Regular rate, Regular rhythm, No murmurs, Normal S1, Normal S2 Respiratory: No distress, CTA bilaterally, Chest nontender Extremities: Tenderness, Edema, - - And has swelling and findings consistent with a total knee arthroplasty was performed on Friday, 4 days ago. There is no erythema, warmth, induration, lymphangitis or popliteal or inguinal lymphadenopathy. There is no pain to palpation along the distribution deep venous system. There is no leg vein distention. There is no discoloration of the leg. There is an effusion noted of the right knee, which 1 would expect status post right total knee arthroplasty performed 4 days ago.. Negative for: Nontender, No edema Skin: Normal color, No rash. Negative for: Cyanosis, Diaphoresis, Jaundice Neurological: Alert, Oriented x3, Cranial nerves II-XII grossly intact, Normal Sensation. Negative for: Normal Gait Psychological: - - Flat affect Diagnostic/Tx/Re-eval - Medical Decision Making Eng with postoperative pain. Clinically patient has a right lower extremity that is swollen due to total knee arthroplasty that it was performed 4 days ago. Patient's Wells score for DVT is a -1. Patient states he is taking the aspirin. He was uncertain whether he was prescribed Mobic or not. He was prescribed oxycodone. Because of his complaint of pain he was prescribed MS Contin. He did contact Dr. Montague because the MS Contin along with the oxycodone is not alleviating his discomfort. He states that severe. After taking history and performing physical Dr. Montague was paged. I informed him of my findings and that I do not have a concern for DVT. He asked if patient did not fill or have prescription for Mobic to write one for him. Pharmacy was contacted and his Mobic prescription was filled. Plan is to medicate with 15 mg of Toradol and 8 mg of morphine pill will reassess in 30 to 60 minutes. ED Disposition - Plan for ED Patient: Disposition: Home or Assisted Living Diagnosis: Postoperative pain of right knee Instructions: ED Wound Check Post Op Pain Referrals: Tres Lopez DO [Primary Care Provider] - Tej Montague MD [STAFF PHYSICIAN] - Keep [facility] appointment
[2020-03-25] MEDS: Ketorolac 15 MG/ML Vial IV (12:18)
[2020-03-25] MEDS: morphine 8 MG/ML Syringe IV (12:18)
[2020-03-25] MEDS: Ondansetron 4 MG/2 ML Vial IV (12:18)
== END 2020-03-25 13:24 | disposition home or self-care (01) ==
PROVIDERS: Emergency Provider Emergency Medicine; PCP Student in an Organized Health Care Education/Training Program
DX: G89.18 Other acute postprocedural pain (principal); M25.561 Pain in right knee; I10 Essential (primary) hypertension; Z79.899 Other long term (current) drug therapy; Z96.651 Presence of right artificial knee joint
CPT/HCPCS: 96374; 96375; 99283; A4216; J2405

== ENCOUNTER → 2020-04-05 | Outpatient (CLI) | payer MEDICARE, OTHER, SELFPAY ==
[2020-03-25 11:52] VITALS: BMI 36.0
--- NOTE | 2020-04-05 13:08 | VDLE_ITS ---
Reason For Study: Pain RLE RIGHT GSV is normal. CFV is compressible, spontaneous, phasic, competent and demonstrates normal augmentation. FV is compressible, spontaneous, phasic, competent and demonstrates normal augmentation. POP V is compressible, spontaneous, phasic, competent and demonstrates normal augmentation. T/P Trunk is compressible. PTV is compressible. RT PerV is compressible. Procedure This is a venous duplex using B-mode, color flow and spectral Doppler. Exam performed in department. A preliminary report was called and/or faxed to Richard. Interpretation Summary Deep veins of the right lower extremity are patent and compressible segmentally. There is no evidence of right lower extremity deep vein thrombosis. Valvular competence appears intact within the proximal deep venous system on the right . The right great saphenous vein appears patent and compressible segmentally. Ordering Physician: Pardeep Ramos Referring Physician: Tres Lopez Performed By: Shabnam Art RVT
== END | disposition home or self-care (01) ==
PROVIDERS: PCP Student in an Organized Health Care Education/Training Program; Referring Provider Physician Assistant Surgical; Visit Provider Physician Assistant Surgical
DX: M79.661 Pain in right lower leg (principal)
CPT/HCPCS: 93971

== ENCOUNTER → 2020-06-28 14:47 | Outpatient (CLI) | payer MEDICARE, OTHER, SELFPAY ==
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
== END ==
PROVIDERS: PCP Student in an Organized Health Care Education/Training Program; Referring Provider Specialist; Visit Provider Specialist
DX: Z01.818 Encounter for other preprocedural examination (principal); M21.162 Varus deformity, not elsewhere classified, left knee
CPT/HCPCS: 36415; 73700; 80048; 83735; 84443; 85025; 87081

== ENCOUNTER 2020-07-12 07:04 | Inpatient (IN) | payer MEDICARE, OTHER, SELFPAY ==
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
[2020-06-28 16:13] LABS: Absolute Lymphocyte Count 1.79 X10^3/uL (0.83-4.51); Absolute Neutrophil Count 3.4 X10^3/uL (2.0-7.7); Basophil# 0.06 X10^3/uL; Eosinophil# 0.24 X10^3/uL; Eosinophils% 3.9 % (0-5); Hematocrit 45.9 % (40-54); Hemoglobin 15.3 g/dL (13.0-16.5); Lymphocyte # 1.79 X10^3/ul (4.0); Lymphocyte % 29.3 % (19-41); Mean Corp Hgb Conc 33.3 g/dL (32-36); Mean Corpuscular Hgb 28.7 pg (27.0-32.0); Mean Platelet Vol. 9.2 fl (6.2-12.0); Monocyte# 0.56 X10^3/uL; Monocyte% 9.2 % (0-10); NRBC Flagged by Analyzer 0 % (0-5); Neutrophil # 3.43 X10^3/uL (2.7-7.7); Neutrophil % 56.3 % (47-70); Platelet Count 305 K/mm3 (150-450); RBC Distribution Width CV 12.9 % (11.6-14.6); RBC Distribution Width SD 40.3 fl (35.1-43.9); Red Blood Count 5.34 M/mm3 (4.6-6.2); White Blood Count 6.1 K/mm3 (4.4-11.0)
[2020-06-28 16:47] LABS: Anion Gap 7 (5-15); BUN 21 mg/dL (7-18); BUN/Creat Ratio 23.5 RATIO (10-20); Calcium,Total 8.7 mg/dL (8.5-10.1); Chloride 107 mmol/L (98-107); EST Glomerular Filtration Rate 90 mL/min (>60); Est Glom Filt Rate - Afr Amer 109 mL/min (>60); Glucose 90 mg/dL (74-106); Magnesium 2.4 mg/dL (1.6-2.6); Potassium 3.9 mmol/L (3.5-5.1); Sodium Level 136 mmol/L (136-145)
[2020-06-28 16:56] LABS: Thyroid Stim Hormone (TSH) 2.13 uIU/mL (0.358-3.74)
[2020-07-12] VITALS (15 sets, daily range): BP systolic 90–147; BP diastolic 54–88; PULSE 54–85; RESP 16–18; TEMP 35.9–36.8; O2SAT 94–100; BMI 36.9
[2020-07-12] MEDS: Scopolamine 1mg/72hr Patch 1 PATCH TD (06:14)
[2020-07-12] MEDS: Celecoxib 200 MG Capsule 400 MG PO (06:14)
[2020-07-12] MEDS: Gabapentin 600 MG Tablet PO (06:15)
[2020-07-12] MEDS: Acetaminophen 500 MG Tablet 1000 MG PO ×3 (06:15→21:25)
[2020-07-12 06:45] LABS: Bedside Glucose 87 mg/dL (70-110)
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
[2020-07-12] MEDS: Cefazolin 2 GM in 0.9% Normal Saline 100 ML IV (07:16)
--- NOTE | 2020-07-12 08:49 | OP.PCM_ITS ---
Report of Operation Date of Procedure: 07/12/20 Pre-Operative Diagnosis: Left knee primary osteoarthritis Post-Operative Diagnosis: Left knee primary osteoarthritis Surgery/Procedure Performed:: Minimally invasive robot-assisted left total knee replacement Description of Surgical Findings:: Stable knee with good patella tracking photogrammetric surveyor: Stacia Aj Type of Anesthesia:: Spinal Anesthesiologist: Colby Lyle Special Medications: 2 g Ancef, 1 g TXA at incision, 1 g TXA closure, 10 mg Decadron, joint cocktail (5 mg Duramorph, 30 mL of 0.5% Ropivicaine, 1000 units of epinephrine, 30 mg of Toradol) Specimen's removed: Bony cuts Estimated Blood Loss (mL): 75 Fluids Replaced: 800 mL crystalloid Description of Procedure: Implants used: 1. Katty size 4 triathlon cruciate retaining distal femoral press-fit component 2. [place] size 5 press-fit tritanium tibial baseplate 3. [place] X3 9 mm CS polyethylene 4. Katty X3 35 mm asymmetric patella Brief history operative indications: 64-year-old male with history of left knee osteoarthritis with radiographic findings with loss of joint space, osteophyte formation and subchondral sclerosis. Failed conservative measures as mentioned in the H&P. Discussion of total knee arthroplasty as well as risk and benefits were discussed the patient including but not limited to blood loss, DVTs, PEs, neurovascular damage, general risk of anesthesia including loss of life, and stiffness or instability were discussed with patient. Patient demonstrated understanding and was able to sign informed consent. Procedure: On the date of procedure patient's left lower extremity was marked in the preoperative area. The patient was then taken back to the operating room where the patient was placed on the table in the supine position. All bony prominences were identified a well-padded. Anesthesia assumed control of the C-spine and airway and remained controlled throughout the remainder of the procedure. A tourniquet was placed on the left upper thigh and the leg was prepped in a cata rile fashion. The surgeon then scrubbed at this time .Upon reentering the room left lower extremity was draped in a standard orthopedic fashion. A timeout was then called and everyone agreed upon the side, the site, the procedure to be performed, patient's identity and antibiotics given. Esmarch bandage was used to exsanguinate the extremity and the tourniquet was placed up to 250 mmHg with the knee in flexion. A midline skin incision was made and sharp dissection was taken down through skin subcutaneous tissue and fat. The standard medial parapatellar incision was made and the patella was s ubluxed laterally. An Appropriate deep MCL release was done and the fat pad was resected. Our attention was then directed to the patella. The patella was everted and a flat resection was made. The knee was then flexed up in 2 femoral pins were placed inside the incision and 2 tibial pins were placed outside the incision in the medial tibia bicortically. Once this was completed the 2 checkpoints in the femur and tibia were placed. Knee was then flexed up and the bony landmarks were registered. Once this was completed knee was taken through range of motion and manually stressed allowing us to a plan for an appropriate tibial cut. The robotic arm was brought into the field sterilely and checkpoint and saw were registered. Based on the patient's deformity the tibial cut was made in 3 degrees varus. At this time the tensioner was then placed in the joint and ligament tension was checked at 90 degrees and full extension. Based on the patient's ligamentous tension appropriate adjustments were made to the operative plan and ligament releases were done. Once we were happy with our operative plan with balanced flexion and extension gaps our attention was directed to the femur. The robot was brought into the field sterilely and registered. Posterior condylar cuts, anterior chamfer cuts and anterior cuts were appropriately made for a size 4 femur. When these were completed the saws were switched out in the distal femoral and posterior chamfer cuts were made. Protecting the soft tissue throughout this time. A size 5 tibial base plate was selected. the knee was flexed to 90 degrees and the soft tissues and posterior osteophytes were removed from the joint. 40 cc of the periarticular injection was injected into the posterior medial corner of the joint. The appropriate trials were then placed on the femur and tibia. A trial polyethylene was trialed to ensure proper balancing and stability of the knee. The appropriate tibial internal rotation was then marked with a bovie. Our attention was then directed to the patella. The lug holes were drilled and the patella trial was placed. Patellar tracking was checked and deemed appropriate. Once we were happy lug holes were drilled for the femur and trial components were removed. the tibia was subluxed and pinned into place and the keel was punched and drilled appropriately. Final components were verified and opened, and cement was mixed in a vacuum. [employer] Simplex cement was used. The wound was copiously irrigated with normal saline. When the cement was ready the components were impacted into place starting with the tibia, femur and finally cementing the patella. The trial poly component was placed and the knee was placed in full extension. All excess cement was removed in the process. Once the cement had cured the tracking, alignment and balance were verified and a size 9 mm CS polyethylene component was placed. Once the final components were placed a 3-minute dilute Betadine lavage followed by an Irrisept lavage was performed and the wound was copiously irrigated with normal saline solution and the periarticular injection was given. The wound was closed in a layer vasquez fashion using #1 vicryl interrupted sutures for the arthrotomy, 2-0 interrupted Vicryl suture for the subcuticular layer and dinorah for final skin closure. A sterile compressive dressing was then placed. The patient was then awakened from anesthesia, transferred to the rtifton and transferred to the PACU for recovery. Post op plan DVT ppx: ASA 81mg BID, thigh high compression stockings Follow up: in office in 2 weeks for wound check PT: to start POD #0 at hospital, outpatient PT should be arranged. My physician psychological assistant was a vital part of this case. He was important in appropriate retraction during the case, and protection of soft tissues during bony cuts. His intimate knowledge of the case and my steps aided in safe and expedient completion of the procedure as well as appropriate position of the leg during the case. He was also vital in assisting with closure under my direct supervision. Due to the complexity of this case robotic arm was used to assist in the surgery to improve accuracy and clinical outcomes. - Complications No intraoperative complications - Admit VTE Documentation VTE Present on Admission: No VTE Mechan Device Prophylaxis: SCD's, Thigh High PIOTR Hose VTE Pharm Prophylaxis ordered?: Yes
[2020-07-12] MEDS: Lactated Ringers 1,000 ML 999 ML IV (09:45)
[2020-07-12] MEDS: dexAMETHasone 10 MG/ML Vial IV (10:18)
[2020-07-12] MEDS: Lactated Ringers 1,000 ML 125 ML IV (10:34)
[2020-07-12] MEDS: morphine SR 15 MG Tablet PO ×2 (11:45→21:24)
[2020-07-12] MEDS: Famotidine 20 MG Tablet PO (12:01)
--- NOTE | 2020-07-12 13:25 | PN_ITS ---
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 Patient has a history of right total knee arthroplasty in February 2020. He continues to have ongoing pain in the left knee. Pain is worse going up and down the staircase and performing his activities of daily living. He has failed outpatient therapy with ewkl-ryw-kxydhcg anti-inflammatory as well as knee injections and bracing. Patient was seen in the immediate postop period. He denied any pain in his left knee. He has a cooling blanket over the knee. Patient stated that ever since his right knee surgery, he has had bilateral leg edema and wears PIOTR hoses. No history of CHF, chest pain, palpitations, orthopnea or PND. His vitals were reviewed and were stable. Recent blood work on 06/28/20 appears stable Vitals/I&O's: Vital Signs Temp Pulse Resp BP Pulse Ox 97.5 F L 62 16 120/73 96 07/12/20 13:10 07/12/20 13:10 07/12/20 13:10 07/12/20 13:10 07/12/20 13:10 Oxygen Flow Rate (L/min) 6 Oxygen Delivery Method Room Air Weight: 97.6 kg Body Mass Index (BMI) 36.9 Intake and Output for Last 24 Hours 07/10/20 07/11/20 07/12/20 23:59 23:59 23:59 Intake Total 1436 / 1436 Balance 1436 / 1436 General: Alert, Oriented x3, Cooperative, No apparent distress HEENT: Atraumatic, PERRLA, EOMI, Normocephalic Oral: Moist Mucosa Neck: Supple Lungs: Clear to auscultation, Normal air movement Cardiovascular: Regular rate, Regular Rhythm, Normal S1, Normal S2, No murmurs Abdomen: Bowel Sounds Present, Soft, Non Tender, Non-Distended, No Hepato- splenomegaly Extremities: Edema - Bilateral leg edema +1, in bilateral PIOTR hoses, cool mat to the left knee Skin: No rashes Musculoskeletal: No Tenderness to Palpation of Joints or Extremities Lymphatic: No Cervical, Supraclavicular, or Inguinal Adenopathy Neurological: Cranial nerves II-XII grossly intact, Neuro grossly intact Psych/Mental Status: Normal Affect, Appropriate Microbiology Past 72 Hours 07/11/20 11:05 Interface Orders SARS-CoV-2 Antigen (Rapid) - Final 06/28/20 15:13 Interface Orders Nasal Screen MRSA/MSSA - Final Laboratory Results 07/12/20 05:57: POC Glucose 87 Current Medications Acetaminophen (Acetaminophen 500 Mg Tablet) 1,000 mg PO Q8H [facility] Amlodipine Besylate (Amlodipine 10 Mg Tablet) 10 mg PO DAILY [facility] Aspirin (Aspirin 81 Mg Tab.Chew) 81 mg PO BID [facility] Cholecalciferol (Cholecalciferol (Vit D3) 1,000 Unit (25mcg)) 1,000 unit PO DAILY [facility] Enteral Nutritional Formula (Ensure Surgery 237 Ml Liquid) 237 ml PO TIDCM [facility] Last Admin: 07/12/20 12:01 Dose: Not Given Documented by: Famotidine (Famotidine 20 Mg Tablet) 20 mg PO DAILY [facility] Last Admin: 07/12/20 12:01 Dose: 20 mg Documented by: Lactated Ringer's () 1,000 mls @ 125 mls/hr IV .Q8H [facility] Stop: 07/12/20 14:59 Last Admin: 07/12/20 10:34 Dose: 125 mls/hr Documented by: Lactated Ringer's () 1,000 mls @ 125 mls/hr IV .Q8H [facility] Last Admin: 07/12/20 11:47 Dose: Not Given Documented by: Cefazolin Sodium () 1 gm in 50 mls @ 150 mls/hr IV Q8H [facility] Stop: 07/12/20 23:49 Sodium Chloride () 250 mls @ 15 mls/hr IV .[id number] PRN PRN Reason: Saline Flush Insulin Human Lispro (Insulin Lispro 100 Unit/Ml Insuln.Pen) 1 - 6 unit SC Q4H PRN PRN; Protocol PRN Reason: BG>/= 180, SEE PROTOCOL Stop: 07/12/20 18:00 Ketorolac Tromethamine (Ketorolac 15 Mg/Ml Vial) 15 mg IV Q6H PRN PRN PRN Reason: Pain Score 1-5 Levothyroxine Sodium (Levothyroxine 25 Mcg Tablet) 25 mcg PO DAILY@0600 [facility] Meloxicam (Meloxicam 7.5 Mg Tablet) 7.5 mg PO BID [facility] Morphine Sulfate (Morphine 2 Mg/Ml Syringe) 2 - 4 mg IV Q2H PRN PRN PRN Reason: Pain Score 6-10 Morphine Sulfate (Morphine Sr 15 Mg Tablet) 15 mg PO BID [facility] Last Admin: 07/12/20 11:45 Dose: 15 mg Documented by: Ondansetron HCl (Ondansetron 4 Mg/2 Ml Vial) 4 mg IV Q8H PRN PRN PRN Reason: NAUSEA Oxycodone HCl (Oxycodone 5 Mg Tablet) 5 - 10 mg PO Q4H PRN PRN PRN Reason: Pain Score 4-10 Promethazine HCl (Promethazine 25 Mg/Ml Syringe) 12.5 mg IM Q6H PRN PRN; Protocol PRN Reason: NAUSEA/VOMITING Senna/Docusate Sodium (Senna/Docusate Sodium 1 Tablet) 2 tablet PO BID [facility] Sodium Chloride (0.9% Nacl Peripheral Flush Adult/Peds) 5 - 15 ml IV UD PRN PRN Reason: SALINE FLUSH Sodium Chloride (0.9% Saline Lock 10 Ml Syringe) 10 - 40 ml IV UD PRN PRN Reason: SALINE FLUSH STROKE Vital Signs/Narrative: Vital Signs Temp Pulse Resp BP Pulse Ox 07/12/20 13:10 97.5 F L 62 16 120/73 96 07/12/20 11:47 60 07/12/20 11:17 96.6 F L 81 18 128/81 H 100 07/12/20 11:00 18 07/12/20 10:42 98.0 F 82 16 125/78 H 100 07/12/20 10:30 80 18 131/76 H 100 07/12/20 10:15 77 18 129/88 H 100 07/12/20 10:00 78 18 126/85 H 100 07/12/20 09:45 81 16 125/70 H 100 07/12/20 09:30 82 16 108/82 H 100 Medical Necessity - Tobacco Use Smoking Status: Never smoker Assessment/Plan All Active Problems No significant past medical history (Acute) Ureterolithiasis with hydronephrosis (Resolved) 1. Postop day #0 status post minimally invasive robot-assisted left total knee replacement Continue with pain management and wound recommendation per primary orthopedic team -scheduled Tylenol, as needed Toradol, oxycodone and morphine as needed 2. Bilateral leg edema, chronic, no reported history of CHF Will recommend discontinuing IV fluids as blood pressures have been stable. Continue with PIOTR hoses, if leg swelling continues to persist, consider evaluation for differentials including CHF with 2d-echo 3. Hypertension, controlled, on continue with home regimen -amlodipine 4. Hypothyroidism, continue on synthroid 5. DVT prophylaxis per primary orthopedic team?aspirin twice daily Inpatient E&M: 60572 Init Hosp L2
[2020-07-12] MEDS: Cefazolin 1 GM/50 ML BAG IV ×2 (15:40→22:53)
--- NOTE | 2020-07-12 17:15 | NURSING ---
@ 1630 call from PT/OT that pts left surgical knee was bleeding.. entered room with pt in chair. removed PIOTR and acewrap. mepilex 100% saturated with blood. got supplies removed dressing and noticed drainage coming from upper middle and lower part of the incision. cleaned up leg applied 3 ABDs and applied pressure. Dr. Montague entered doing his evening round and saw left knee.. stated to apply 5 ABDs wrap tight with bernardo and apply 5# weight. to leave mepilex dressing off until after PT/OT works with him on 07/13 to make sure doesnt bleed again. left knee redressed pt up in chair and instructed about 5# weight wrapped around leg. urinal given incase needs restroom. call light in reach. girlfriend at bedside. Luis Carlos RN updated.
[2020-07-12] MEDS: 0.9% NaCl Peripheral Flush Adult/Peds IV (17:53)
[2020-07-12] MEDS: Senna/Docusate Sodium 1 Tablet 2 TABLET PO (21:24)
[2020-07-12] MEDS: Aspirin 81 MG TAB.CHEW PO (21:24)
[2020-07-13 03:58] VITALS: BP 125/68; PULSE 56; RESP 16; TEMP 36.5; O2SAT 98
[2020-07-13] MEDS: Levothyroxine 25 MCG TABLET PO (05:51)
[2020-07-13] MEDS: Acetaminophen 500 MG Tablet 1000 MG PO ×3 (05:51→22:11)
[2020-07-13 07:01] LABS: Hematocrit 36.3 % (40-54); Hemoglobin 12.2 g/dL (13.0-16.5); Mean Corp Hgb Conc 33.6 g/dL (32-36); Mean Corpuscular Hgb 29.7 pg (27.0-32.0); Mean Corpuscular Volume 88.3 fL (80-94); Mean Platelet Vol. 9.8 fl (6.2-12.0); Platelet Count 258 K/mm3 (150-450); RBC Distribution Width CV 13.2 % (11.6-14.6); RBC Distribution Width SD 42.6 fl (35.1-43.9); Red Blood Count 4.11 M/mm3 (4.6-6.2); White Blood Count 12.3 K/mm3 (4.4-11.0)
[2020-07-13 07:29] LABS: Anion Gap 4 (5-15); BUN 18 mg/dL (7-18); BUN/Creat Ratio 16.4 RATIO (10-20); Calcium,Total 8.8 mg/dL (8.5-10.1); Chloride 108 mmol/L (98-107); EST Glomerular Filtration Rate 71 mL/min (>60); Est Glom Filt Rate - Afr Amer 86 mL/min (>60); Estimated Creatinine Clearance 55.31 ml/min; Glucose 115 mg/dL (74-106); Potassium 4.8 mmol/L (3.5-5.1); Sodium Level 137 mmol/L (136-145)
[2020-07-13 08:29] VITALS: BP 137/72; PULSE 57; RESP 18; TEMP 36.4; O2SAT 98
--- NOTE | 2020-07-13 09:07 | PN.ORTHO_ITS ---
Subjective: The patient was sitting in bedside chair upon examination. Patient denies any chest pain, shortness of breath, dizziness, lightheadedness, nausea or vomiting, or calf pain. Pain is controlled on medications. Patient has had drainage after physical therapy yesterday. Dressing was changed and patient continued to have drainage this morning. I examined the knee and there is a small amount of drainage at the apex of the proximal incision between dinorah. There is no erythema. Mepilex dressing was removed and a compressive ABD dressing was placed. Objective: Vital signs stable and afebrile. Patient is able to plantarflex and dorsiflex actively. Sensation is intact to light touch to saphenous, sural, superficial and deep peroneal, and tibial distribution. Dressing is with drainage over the proximal main dressing. The pin site dressings are doing well. The Mepilex dressing was removed and there is a small ooze at the apex of the main incision above the staple. There is no erythema to the knee. No significant effusion. A compressive dressing with ABDs was placed. Negative Homans bilaterally, negative signs and symptoms of DVT. - Physical Exam Vitals/I&O's: Vital Signs Temp Pulse Resp BP Pulse Ox 97.5 F L 57 L 18 137/72 H 98 07/13/20 08:29 07/13/20 08:29 07/13/20 08:29 07/13/20 08:29 07/13/20 08:29 Oxygen Flow Rate (L/min) 6 Oxygen Delivery Method Room Air Weight: 97.6 kg Body Mass Index (BMI) 36.9 Intake and Output for Last 24 Hours 07/11/20 07/12/20 07/13/20 23:59 23:59 23:59 Intake Total 2740.17 / 2740.17 600 / 600 Balance 2740.17 / 2740.17 600 / 600 General: Alert, Oriented x3, Cooperative, No apparent distress Microbiology Past 72 Hours 07/11/20 11:05 Interface Orders SARS-CoV-2 Antigen (Rapid) - Final 06/28/20 15:13 Interface Orders Nasal Screen MRSA/MSSA - Final Laboratory Results 07/13/20 06:48: WBC 12.3 H, RBC 4.11 L, Hgb 12.2 L, Hct 36.3 L, MCV 88.3, MCH 29.7, MCHC 33.6, RDW Std Deviation 42.6, RDW Coeff of Charlie 13.2, Plt Count 258, MPV 9.8 07/13/20 06:48: Sodium 137, Potassium 4.8, Chloride 108 H, Carbon Dioxide 25.0, Anion Gap 4 L, BUN 18, Creatinine 1.10, Estim Creat Clear Calc 55.31, Est GFR (MDRD) Af Amer 86, Est GFR (MDRD) Non-Af 71, BUN/Creatinine Ratio 16.4, Glucose 115 H, Calcium 8.8 Current Medications Acetaminophen (Acetaminophen 500 Mg Tablet) 1,000 mg PO Q8H [facility] Last Admin: 07/13/20 05:51 Dose: 1,000 mg Documented by: Amlodipine Besylate (Amlodipine 10 Mg Tablet) 10 mg PO DAILY [facility] Aspirin (Aspirin 81 Mg Tab.Chew) 81 mg PO BID [facility] Last Admin: 07/12/20 21:24 Dose: 81 mg Documented by: Cholecalciferol (Cholecalciferol (Vit D3) 1,000 Unit (25mcg)) 1,000 unit PO DAILY [facility] Enteral Nutritional Formula (Ensure Surgery 237 Ml Liquid) 237 ml PO TIDCM [facility] Last Admin: 07/13/20 07:15 Dose: Not Given Documented by: Famotidine (Famotidine 20 Mg Tablet) 20 mg PO DAILY [facility] Last Admin: 07/12/20 12:01 Dose: 20 mg Documented by: Sodium Chloride () 250 mls @ 15 mls/hr IV .[id number] PRN PRN Reason: Saline Flush Ketorolac Tromethamine (Ketorolac 15 Mg/Ml Vial) 15 mg IV Q6H PRN PRN PRN Reason: Pain Score 1-5 Levothyroxine Sodium (Levothyroxine 25 Mcg Tablet) 25 mcg PO DAILY@0600 [facility] Last Admin: 07/13/20 05:51 Dose: 25 mcg Documented by: Meloxicam (Meloxicam 7.5 Mg Tablet) 7.5 mg PO BID [facility] Morphine Sulfate (Morphine 2 Mg/Ml Syringe) 2 - 4 mg IV Q2H PRN PRN PRN Reason: Pain Score 6-10 Morphine Sulfate (Morphine Sr 15 Mg Tablet) 15 mg PO BID [facility] Last Admin: 07/12/20 21:24 Dose: 15 mg Documented by: Ondansetron HCl (Ondansetron 4 Mg/2 Ml Vial) 4 mg IV Q8H PRN PRN PRN Reason: NAUSEA Oxycodone HCl (Oxycodone 5 Mg Tablet) 5 - 10 mg PO Q4H PRN PRN PRN Reason: Pain Score 4-10 Promethazine HCl (Promethazine 25 Mg/Ml Syringe) 12.5 mg IM Q6H PRN PRN; Protocol PRN Reason: NAUSEA/VOMITING Senna/Docusate Sodium (Senna/Docusate Sodium 1 Tablet) 2 tablet PO BID [facility] Last Admin: 07/12/20 21:24 Dose: 2 tablet Documented by: Sodium Chloride (0.9% Nacl Peripheral Flush Adult/Peds) 5 - 15 ml IV UD PRN PRN Reason: SALINE FLUSH Last Admin: 07/12/20 17:53 Dose: 10 ml Documented by: Sodium Chloride (0.9% Saline Lock 10 Ml Syringe) 10 - 40 ml IV UD PRN PRN Reason: SALINE FLUSH Medical Necessity - Tobacco Use Smoking Status: Never smoker Assessment/Plan All Active Problems No significant past medical history (Acute) Ureterolithiasis with hydronephrosis (Resolved) 1. S/P left total knee arthroplasty POD #1 2. Continue Pain Medications: Tylenol, meloxicam, MS Contin, oxycodone. Patient had significant pain issues after his previous postoperative knee. This current pain regimen is doing well for the patient. 3. DVT Prophylaxis: Take 81 mg aspirin twice daily for 4 weeks postoperatively for DVT prophylaxis 4. PT/OT: Patient attempted physical therapy this morning and had continued drainage through the ABDs. At this time we will continue with the compressive ABD dressing. Therapy can walk the patient but I do not want him working on any flexion. 5. Postoperative knee drainage: We will alter physical therapy at this time and no flexion of the knee. We will use compressive ABD dressing. Will also use sandbag at rest. I would like to watch him overnight and we will potentially discharge him tomorrow morning. 6. H & H: 12.2/36.3, asymptomatic. Postoperative anemia secondary to acute blood loss from surgery without any intra operative complications. 7. Reactive leukocytosis: Currently 12.3, afebrile. Patient did receive Decadron intraoperatively 8. Continue postoperative medical management per medicine 9. Encouraged Incentive Spirometry 10. Disposition: Patient will require an additional stay due to the drainage with his postoperative left knee. Plan will be for discharge home tomorrow. We will also look at placing a Mepilex dressing once we have drainage better controlled. Physical therapy will alter their treatment plan at this time.
--- NOTE | 2020-07-13 09:12 | PCM.DC.TKR ---
Discharge Diet: No Restrictions Discharge Activity: May Not Drive May shower in (days): 1 - Okay to shower if dressing is intact to skin. Turn dressing away from water. Do not submerge underwater for 6 weeks postoperatively. Ice area for (Minutes): 20 - every hour while awake. Weight Bearing Status: Weight bearing as tolerated Elevate: Operative Extremity Additional Activity Instructions:: Wear elastic stockings for 2 weeks after your surgery. Call your doctor if your incision/area has: Continuous Slow Oozing, Sudden Increased Bleeding, Increased Pain/ Swelling, Increased Redness, Foul Smelling Discharge Call your doctor if you observe: Fever of 101 or Higher, Coldness, Increased Pain, Numbness or Tingling, Change in Color, Calf discomfort, Uncontrolled pain Remove Dressing in (days):: 4 - Okay to remove dressing on July 18, 2020 Additional Instructions: Follow [facility] Post-op Instructions. Once postoperative dressing has been removed only use gentle soap and water over the incision. Do not use any ointments, Neosporin, salves, alcohol pads over the incision for 6 weeks postoperatively. Do not submerge underwater for 6 weeks postoperatively. Allergies/Adverse Reactions: Allergies lisinopril Adverse Reaction (Verified 07/12/20 11:19) cough Medications to take at Discharge Amlodipine Besylate [Norvasc] 10 mg PO DAILY 05/07/17 Levothyroxine [Synthroid] 25 mcg PO DAILY 05/07/17 Cholecalciferol (VIT D3) [Vitamin D3] 1,000 unit PO DAILY 03/01/20 Meloxicam 15 mg PO DAILY #0 03/23/20 Acetaminophen [Tylenol] 1,000 mg PO Q8H #100 tab 07/14/20 Aspirin [Aspirin, Baby] 81 mg PO BID #60 tab 07/14/20 Famotidine [Pepcid] 20 mg PO DAILY #30 tab 07/14/20 Oxycodone [Oxyir] 5 - 10 mg PO Q4H PRN PRN 5 Days #60 tablet 07/14/20 Senna/Docusate Sodium [Senokot-S] 2 tab PO BID #10 tab 07/14/20 morphine SR tablet [Ms Contin] 15 mg PO BID 3 Days #6 tablet 07/14/20 The following prescriptions were given: Aspirin [Aspirin, Baby] 81 mg PO BID #60 tab Transmission Status: Pending to [facility] morphine SR tablet [Ms Contin] 15 mg PO BID 3 Days #6 tablet Transmission Status: Sent to [facility] Oxycodone [Oxyir] 5 - 10 mg PO Q4H PRN PRN 5 Days #60 tablet PRN Reason: Pain Score 4-10 Transmission Status: Sent to [facility] Famotidine [Pepcid] 20 mg PO DAILY #30 tab Transmission Status: Pending to [facility] Senna/Docusate Sodium [Senokot-S] 2 tab PO BID #10 tab Transmission Status: Pending to [facility] Acetaminophen [Tylenol] 1,000 mg PO Q8H #100 tab Transmission Status: Pending to [facility] Primary Care Physician: Tres Lopez DO [Primary Care Provider] - Test Results: Test results from this visit will be discussed in further detail at your follow-up appointment, if applicable. Please Follow Up With: [facility] When: 07/17/20 @ 11:00 with [place] Please Follow Up With: Pardeep Ramos PA-C When: 07/26/20 @ 10:00 am
[2020-07-13] MEDS: Famotidine 20 MG Tablet PO (09:23)
[2020-07-13] MEDS: morphine SR 15 MG Tablet PO (09:23)
[2020-07-13] MEDS: amLODIPine 10 MG Tablet PO (09:23)
[2020-07-13] MEDS: Aspirin 81 MG TAB.CHEW PO ×2 (09:23→22:11)
[2020-07-13] MEDS: Senna/Docusate Sodium 1 Tablet 2 TABLET PO ×2 (09:23→22:11)
--- NOTE | 2020-07-13 10:35 | CASEMGMT ---
RN PETER Face to Face with patient for initial transition planning/care coordination assessment. RN CM introduced self and role at [facility]. Patient sitting in chair, alert and oriented. Patient willing to participate in assessment and is able to answer all questions appropriately. Care providers, pharmacy, and demographics verified. Patient wishes to discharge home and is setup with [facility] for outpatient therapy. Patient states he has no further needs or concerns at this time. CM to follow for discharge planning needs that may arise. PCP: John Specialists: [facility] Pharmacy: [facility] retail Insurance: [employer] Prescription Benefit: yes Living Will/HPOA: none LNOK: brother, Sig other Living Arrangements: Patient lives with sig other in a 2 story home with bed and bath on the first floor. 3 steps to enter the home. Transportation: Sig other DME/HHC: Patient states he has shower chair, and walker at home. Patient is setup with [facility] for outpatient therapy on Friday. Disposition Plan: Patient to discharge home with outpatient therapy, family support, and follow-up plans in place. Shabnam NIETO, RN, CM
--- NOTE | 2020-07-13 12:04 | PCM.PN.HOSP ---
<Niall Joy - Last Filed: 07/13/20 12:04> Reason for Visit: post op left total knee Subjective: Pt resting comfortably in chair at bedside NAD. No fever/chills. No cough/sob. no N/V/D. Pt plans to remain overnight due to ongoing drainage with his knee. Vitals/I&O's: Vital Signs Temp Pulse Resp BP Pulse Ox 97.5 F L 57 L 18 137/72 H 98 07/13/20 08:29 07/13/20 08:29 07/13/20 08:29 07/13/20 08:29 07/13/20 08:29 Oxygen Flow Rate (L/min) 6 Oxygen Delivery Method Room Air Weight: 215 lb 2.738 oz Body Mass Index (BMI) 36.9 Intake and Output for Last 24 Hours 07/11/20 07/12/20 07/13/20 23:59 23:59 23:59 Intake Total 2740.17 / 2740.17 600 / 600 Balance 2740.17 / 2740.17 600 / 600 General: Alert, Oriented x3, Cooperative HEENT: Atraumatic, PERRLA, EOMI, Normocephalic Neck: Supple, No JVD, Negative Carotid Bruits Lungs: Clear to auscultation, Normal air movement Cardiovascular: Regular rate, No murmurs Abdomen: Bowel Sounds Present, Soft, Non Tender Extremities: No edema, Capillary Refill Less than 3 Seconds Skin: No rashes, No breakdown Musculoskeletal: No Tenderness to Palpation of Joints or Extremities Neurological: Cranial nerves II-XII grossly intact Psych/Mental Status: Normal Affect, Appropriate, Alert and oriented to time, place, person, mood and affect Microbiology Past 72 Hours 07/11/20 11:05 Interface Orders SARS-CoV-2 Antigen (Rapid) - Final 06/28/20 15:13 Interface Orders Nasal Screen MRSA/MSSA - Final Laboratory Results 07/13/20 06:48: WBC 12.3 H, RBC 4.11 L, Hgb 12.2 L, Hct 36.3 L, MCV 88.3, MCH 29.7, MCHC 33.6, RDW Std Deviation 42.6, RDW Coeff of Charlie 13.2, Plt Count 258, MPV 9.8 07/13/20 06:48: Sodium 137, Potassium 4.8, Chloride 108 H, Carbon Dioxide 25.0, Anion Gap 4 L, BUN 18, Creatinine 1.10, Estim Creat Clear Calc 55.31, Est GFR (MDRD) Af Amer 86, Est GFR (MDRD) Non-Af 71, BUN/Creatinine Ratio 16.4, Glucose 115 H, Calcium 8.8 Current Medications Acetaminophen (Acetaminophen 500 Mg Tablet) 1,000 mg PO Q8H [facility] Last Admin: 07/13/20 05:51 Dose: 1,000 mg Documented by: Amlodipine Besylate (Amlodipine 10 Mg Tablet) 10 mg PO DAILY [facility] Last Admin: 07/13/20 09:23 Dose: 10 mg Documented by: Aspirin (Aspirin 81 Mg Tab.Chew) 81 mg PO BID [facility] Last Admin: 07/13/20 09:23 Dose: 81 mg Documented by: Cholecalciferol (Cholecalciferol (Vit D3) 1,000 Unit (25mcg)) 1,000 unit PO DAILY [facility] Last Admin: 07/13/20 09:24 Dose: 1,000 unit Documented by: Enteral Nutritional Formula (Ensure Surgery 237 Ml Liquid) 237 ml PO TIDCM [facility] Last Admin: 07/13/20 12:03 Dose: Not Given Documented by: Famotidine (Famotidine 20 Mg Tablet) 20 mg PO DAILY [facility] Last Admin: 07/13/20 09:23 Dose: 20 mg Documented by: Sodium Chloride () 250 mls @ 15 mls/hr IV .[id number] PRN PRN Reason: Saline Flush Ketorolac Tromethamine (Ketorolac 15 Mg/Ml Vial) 15 mg IV Q6H PRN PRN PRN Reason: Pain Score 1-5 Levothyroxine Sodium (Levothyroxine 25 Mcg Tablet) 25 mcg PO DAILY@0600 [facility] Last Admin: 07/13/20 05:51 Dose: 25 mcg Documented by: Meloxicam (Meloxicam 7.5 Mg Tablet) 7.5 mg PO BID [facility] Morphine Sulfate (Morphine 2 Mg/Ml Syringe) 2 - 4 mg IV Q2H PRN PRN PRN Reason: Pain Score 6-10 Morphine Sulfate (Morphine Sr 15 Mg Tablet) 15 mg PO BID [facility] Last Admin: 07/13/20 09:23 Dose: 15 mg Documented by: Ondansetron HCl (Ondansetron 4 Mg/2 Ml Vial) 4 mg IV Q8H PRN PRN PRN Reason: NAUSEA Oxycodone HCl (Oxycodone 5 Mg Tablet) 5 - 10 mg PO Q4H PRN PRN PRN Reason: Pain Score 4-10 Promethazine HCl (Promethazine 25 Mg/Ml Syringe) 12.5 mg IM Q6H PRN PRN; Protocol PRN Reason: NAUSEA/VOMITING Senna/Docusate Sodium (Senna/Docusate Sodium 1 Tablet) 2 tablet PO BID [facility] Last Admin: 07/13/20 09:23 Dose: 2 tablet Documented by: Sodium Chloride (0.9% Nacl Peripheral Flush Adult/Peds) 5 - 15 ml IV UD PRN PRN Reason: SALINE FLUSH Last Admin: 07/12/20 17:53 Dose: 10 ml Documented by: Sodium Chloride (0.9% Saline Lock 10 Ml Syringe) 10 - 40 ml IV UD PRN PRN Reason: SALINE FLUSH STROKE Vital Signs/Narrative: Vital Signs Temp Pulse Resp BP Pulse Ox 07/13/20 08:29 97.5 F L 57 L 18 137/72 H 98 Medical Necessity - Tobacco Use Smoking Status: Never smoker Assessment/Plan All Active Problems No significant past medical history (Acute) Ureterolithiasis with hydronephrosis (Resolved) 1. Post op Left total knee - POD#1. Pain controlled. Ongoing increased drainage. Patient will be monitored overnight for cessation of drainage. 2. Hypertension-stable 3. Hypothyroidism-Synthroid DVT prophylaxis: Per orthopedics-81 aspirin twice daily Thank you for the opportunity to participate in the care of this patient. This patient was seen by Niall Joy PA-C under the supervision of Doctor Justin. <Mike Anderson F - Last Filed: 07/13/20 15:08> Vitals/I&O's: Vital Signs Temp Pulse Resp BP Pulse Ox 97.6 F L 52 L 18 119/71 96 07/13/20 14:13 07/13/20 14:13 07/13/20 14:13 07/13/20 14:13 07/13/20 14:13 Oxygen Flow Rate (L/min) 6 Oxygen Delivery Method Room Air Weight: 215 lb 2.738 oz Body Mass Index (BMI) 36.9 Intake and Output for Last 24 Hours 01/07/12/20 07/13/20 23:59 23:59 23:59 Intake Total 2740.17 / 2740.17 1779 Balance 2740.17 / 2740.17 1779 Microbiology Past 72 Hours 07/11/20 11:05 Interface Orders SARS-CoV-2 Antigen (Rapid) - Final Laboratory Results 07/13/20 06:48: WBC 12.3 H, RBC 4.11 L, Hgb 12.2 L, Hct 36.3 L, MCV 88.3, MCH 29.7, MCHC 33.6, RDW Std Deviation 42.6, RDW Coeff of Charlie 13.2, Plt Count 258, MPV 9.8 07/13/20 06:48: Sodium 137, Potassium 4.8, Chloride 108 H, Carbon Dioxide 25.0, Anion Gap 4 L, BUN 18, Creatinine 1.10, Estim Creat Clear Calc 55.31, Est GFR (MDRD) Af Amer 86, Est GFR (MDRD) Non-Af 71, BUN/Creatinine Ratio 16.4, Glucose 115 H, Calcium 8.8 Current Medications Acetaminophen (Acetaminophen 500 Mg Tablet) 1,000 mg PO Q8H [facility] Last Admin: 07/13/20 14:06 Dose: 1,000 mg Documented by: Amlodipine Besylate (Amlodipine 10 Mg Tablet) 10 mg PO DAILY [facility] Last Admin: 07/13/20 09:23 Dose: 10 mg Documented by: Aspirin (Aspirin 81 Mg Tab.Chew) 81 mg PO BID [facility] Last Admin: 07/13/20 09:23 Dose: 81 mg Documented by: Cholecalciferol (Cholecalciferol (Vit D3) 1,000 Unit (25mcg)) 1,000 unit PO DAILY [facility] Last Admin: 07/13/20 09:24 Dose: 1,000 unit Documented by: Enteral Nutritional Formula (Ensure Surgery 237 Ml Liquid) 237 ml PO TIDCM [facility] Last Admin: 07/13/20 12:03 Dose: Not Given Documented by: Famotidine (Famotidine 20 Mg Tablet) 20 mg PO DAILY [facility] Last Admin: 07/13/20 09:23 Dose: 20 mg Documented by: Sodium Chloride () 250 mls @ 15 mls/hr IV .[id number] PRN PRN Reason: Saline Flush Ketorolac Tromethamine (Ketorolac 15 Mg/Ml Vial) 15 mg IV Q6H PRN PRN PRN Reason: Pain Score 1-5 Levothyroxine Sodium (Levothyroxine 25 Mcg Tablet) 25 mcg PO DAILY@0600 [facility] Last Admin: 07/13/20 05:51 Dose: 25 mcg Documented by: Meloxicam (Meloxicam 7.5 Mg Tablet) 7.5 mg PO BID [facility] Morphine Sulfate (Morphine 2 Mg/Ml Syringe) 2 - 4 mg IV Q2H PRN PRN PRN Reason: Pain Score 6-10 Morphine Sulfate (Morphine Sr 15 Mg Tablet) 15 mg PO BID [facility] Last Admin: 07/13/20 09:23 Dose: 15 mg Documented by: Ondansetron HCl (Ondansetron 4 Mg/2 Ml Vial) 4 mg IV Q8H PRN PRN PRN Reason: NAUSEA Oxycodone HCl (Oxycodone 5 Mg Tablet) 5 - 10 mg PO Q4H PRN PRN PRN Reason: Pain Score 4-10 Promethazine HCl (Promethazine 25 Mg/Ml Syringe) 12.5 mg IM Q6H PRN PRN; Protocol PRN Reason: NAUSEA/VOMITING Senna/Docusate Sodium (Senna/Docusate Sodium 1 Tablet) 2 tablet PO BID [facility] Last Admin: 07/13/20 09:23 Dose: 2 tablet Documented by: Sodium Chloride (0.9% Nacl Peripheral Flush Adult/Peds) 5 - 15 ml IV UD PRN PRN Reason: SALINE FLUSH Last Admin: 07/12/20 17:53 Dose: 10 ml Documented by: Sodium Chloride (0.9% Saline Lock 10 Ml Syringe) 10 - 40 ml IV UD PRN PRN Reason: SALINE FLUSH STROKE Vital Signs/Narrative: Vital Signs Temp Pulse Resp BP Pulse Ox 07/13/20 14:13 97.6 F L 52 L 18 119/71 96 07/13/20 14:02 18 96 Addendum: Dr. Anderson I personally examined the patient and reviewed the chart. I agree with the above. Six 4-year-old male presenting with left knee arthritis status post left total knee replacement. He has done well today with PT/OT however he has had continued drainage therefore will remain overnight for monitoring by orthopedic surgery. Pain is controlled and he is able to move his toes and has sensation. There was some concern for bilateral swelling in him however he is on Norvasc which this is a very well-known side effect therefore his PCP and may need to decrease his dose by 50%. His other medical history is stable and from medicine perspective he is stable for discharge whenever deemed appropriate by orthopedic surgery. Inpatient E&M: 79967 Subs Hosp L2
[2020-07-13 14:02] VITALS: RESP 18; O2SAT 96
[2020-07-13 14:13] VITALS: BP 119/71; PULSE 52; RESP 18; TEMP 36.4; O2SAT 96
[2020-07-13] MEDS: oxyCODONE 5 MG Tablet PO ×2 (16:51→22:11)
[2020-07-13 21:30] VITALS: BP 119/57; PULSE 63; RESP 18; TEMP 36.8; O2SAT 95
[2020-07-14 04:00] VITALS: BP 137/66; PULSE 64; RESP 18; TEMP 36.4; O2SAT 96
[2020-07-14] MEDS: oxyCODONE 5 MG Tablet PO ×2 (04:02→12:28)
[2020-07-14 06:37] LABS: Hematocrit 32.4 % (40-54); Hemoglobin 10.8 g/dL (13.0-16.5); Mean Corp Hgb Conc 33.3 g/dL (32-36); Mean Corpuscular Hgb 29.3 pg (27.0-32.0); Mean Corpuscular Volume 87.8 fL (80-94); Mean Platelet Vol. 9.6 fl (6.2-12.0); Platelet Count 196 K/mm3 (150-450); RBC Distribution Width CV 13.6 % (11.6-14.6); RBC Distribution Width SD 43.6 fl (35.1-43.9); Red Blood Count 3.69 M/mm3 (4.6-6.2); White Blood Count 6.9 K/mm3 (4.4-11.0)
[2020-07-14] MEDS: Levothyroxine 25 MCG TABLET PO (06:37)
[2020-07-14] MEDS: Meloxicam 7.5 MG Tablet PO (06:37)
[2020-07-14] MEDS: Acetaminophen 500 MG Tablet 1000 MG PO (06:37)
--- NOTE | 2020-07-14 06:38 | PN.ORTHO_ITS ---
Subjective: The patient was sitting in bedside chair upon examination. Patient denies any chest pain, shortness of breath, dizziness, lightheadedness, nausea or vomiting, or calf pain. Pain is controlled on medications. No adverse overnight events. Patient has been noncompliant with getting up and walking on his own without contacting nursing. He refused his MS Contin this morning. Patient states overall he is doing better. He had to stay an additional night due to drainage. There was minimal drainage on the ABD today. Objective: Vital signs stable and afebrile. Patient is able to plantarflex and dorsiflex actively. Sensation is intact to light touch to saphenous, sural, superficial and deep peroneal, and tibial distribution. Compressive dressing with the left knee intact. Minimal drainage on the ABD. We will continue with the compressive dressing through physical therapy today. Plan will be to put Mepilex dressing over the incision prior to discharge Negative Homans bilaterally, negative signs and symptoms of DVT. - Physical Exam Vitals/I&O's: Vital Signs Temp Pulse Resp BP Pulse Ox 97.6 F L 64 18 137/66 H 96 07/14/20 04:00 07/14/20 04:00 07/14/20 04:00 07/14/20 04:00 07/14/20 04:00 Oxygen Flow Rate (L/min) 6 Oxygen Delivery Method Room Air Weight: 97.6 kg Body Mass Index (BMI) 36.9 Intake and Output for Last 24 Hours 07/12/20 07/13/20 07/14/20 23:59 23:59 23:59 Intake Total 2740.17 / 2740.17 1780 / 2180 400 / 400 Balance 2740.17 / 2740.17 1780 / 2180 400 / 400 General: Alert, Oriented x3, Cooperative, No apparent distress Microbiology Past 72 Hours 07/11/20 11:05 Interface Orders SARS-CoV-2 Antigen (Rapid) - Final Laboratory Results 07/13/20 06:48: WBC 12.3 H, RBC 4.11 L, Hgb 12.2 L, Hct 36.3 L, MCV 88.3, MCH 29.7, MCHC 33.6, RDW Std Deviation 42.6, RDW Coeff of Charlie 13.2, Plt Count 258, MPV 9.8 07/13/20 06:48: Sodium 137, Potassium 4.8, Chloride 108 H, Carbon Dioxide 25.0, Anion Gap 4 L, BUN 18, Creatinine 1.10, Estim Creat Clear Calc 55.31, Est GFR (MDRD) Af Amer 86, Est GFR (MDRD) Non-Af 71, BUN/Creatinine Ratio 16.4, Glucose 115 H, Calcium 8.8 07/14/20 06:28: WBC Pending, RBC Pending, Hgb Pending, Hct Pending, MCV Pending, MCH Pending, MCHC Pending, RDW Std Deviation Pending, RDW Coeff of Charlie Pending, Plt Count Pending Current Medications Acetaminophen (Acetaminophen 500 Mg Tablet) 1,000 mg PO Q8H [facility] Last Admin: 07/13/20 22:11 Dose: 1,000 mg Documented by: Amlodipine Besylate (Amlodipine 10 Mg Tablet) 10 mg PO DAILY [facility] Last Admin: 07/13/20 09:23 Dose: 10 mg Documented by: Aspirin (Aspirin 81 Mg Tab.Chew) 81 mg PO BID [facility] Last Admin: 07/13/20 22:11 Dose: 81 mg Documented by: Cholecalciferol (Cholecalciferol (Vit D3) 1,000 Unit (25mcg)) 1,000 unit PO DAILY [facility] Last Admin: 07/13/20 09:24 Dose: 1,000 unit Documented by: Enteral Nutritional Formula (Ensure Surgery 237 Ml Liquid) 237 ml PO TIDCM [facility] Last Admin: 07/13/20 16:50 Dose: Not Given Documented by: Famotidine (Famotidine 20 Mg Tablet) 20 mg PO DAILY [facility] Last Admin: 07/13/20 09:23 Dose: 20 mg Documented by: Sodium Chloride () 250 mls @ 15 mls/hr IV .[id number] PRN PRN Reason: Saline Flush Ketorolac Tromethamine (Ketorolac 15 Mg/Ml Vial) 15 mg IV Q6H PRN PRN PRN Reason: Pain Score 1-5 Levothyroxine Sodium (Levothyroxine 25 Mcg Tablet) 25 mcg PO DAILY@0600 [facility] Last Admin: 07/13/20 05:51 Dose: 25 mcg Documented by: Meloxicam (Meloxicam 7.5 Mg Tablet) 7.5 mg PO BID [facility] Morphine Sulfate (Morphine 2 Mg/Ml Syringe) 2 - 4 mg IV Q2H PRN PRN PRN Reason: Pain Score 6-10 Morphine Sulfate (Morphine Sr 15 Mg Tablet) 15 mg PO BID [facility] Last Admin: 07/13/20 22:19 Dose: Not Given Documented by: Ondansetron HCl (Ondansetron 4 Mg/2 Ml Vial) 4 mg IV Q8H PRN PRN PRN Reason: NAUSEA Oxycodone HCl (Oxycodone 5 Mg Tablet) 5 - 10 mg PO Q4H PRN PRN PRN Reason: Pain Score 4-10 Last Admin: 07/14/20 04:02 Dose: 10 mg Documented by: Promethazine HCl (Promethazine 25 Mg/Ml Syringe) 12.5 mg IM Q6H PRN PRN; Protocol PRN Reason: NAUSEA/VOMITING Senna/Docusate Sodium (Senna/Docusate Sodium 1 Tablet) 2 tablet PO BID [facility] Last Admin: 07/13/20 22:11 Dose: 2 tablet Documented by: Sodium Chloride (0.9% Nacl Peripheral Flush Adult/Peds) 5 - 15 ml IV UD PRN PRN Reason: SALINE FLUSH Last Admin: 07/12/20 17:53 Dose: 10 ml Documented by: Sodium Chloride (0.9% Saline Lock 10 Ml Syringe) 10 - 40 ml IV UD PRN PRN Reason: SALINE FLUSH Medical Necessity - Tobacco Use Smoking Status: Never smoker Assessment/Plan All Active Problems No significant past medical history (Acute) Ureterolithiasis with hydronephrosis (Resolved) 1. S/P left total knee arthroplasty POD #2 2. Continue Pain Medications: Tylenol, meloxicam, MS Contin, oxycodone. Patient had significant pain issues after his previous postoperative knee. This current pain regimen is doing well for the patient. 3. DVT Prophylaxis: Take 81 mg aspirin twice daily for 4 weeks postoperatively for DVT prophylaxis 4. PT/OT: Patient attempted physical therapy this morning and had continued drainage through the ABDs. At this time we will continue with the compressive ABD dressing. Therapy can walk the patient but I do not want him working on any flexion. 5. Postoperative knee drainage: There is no active drainage this morning. Minimal output on the ABD. 6. H & H: Lab work has yet to be obtained this morning. Postoperative anemia secondary to acute blood loss from surgery without any intra operative complications. 7. Reactive leukocytosis: Lab work has yet to be obtained this morning, yesterday 12.3, afebrile. Patient did receive Decadron intraoperatively 8. Continue postoperative medical management per medicine 9. Encouraged Incentive Spirometry 10. Disposition: Patient appears to be doing much better with regards to this total knee arthroplasty with regards to pain control. He did have postoperative drainage which required an additional stay. This has significantly improved today. Plan will be for patient to continue with the compressive dressing through physical therapy. We will place a Mepilex dressing over the left knee prior to discharge. He will keep this on for 5 days. Patient will follow-up per postop instructions. Prescriptions will be E scribed to [facility]. I have reviewed the [place] Automated Rx Reporting System (OARRS) report for this patient for refill pattern and other prescriber involvement as part of the appro priate surveillance for the provision of acute and chronic controlled medications. The report was requested and reviewed on the date of this entry and was considered in the prescribing process.
[2020-07-14 10:00] VITALS: BP 146/77; PULSE 59; RESP 18; TEMP 37; O2SAT 98
[2020-07-14] MEDS: Aspirin 81 MG TAB.CHEW PO (10:04)
[2020-07-14] MEDS: morphine SR 15 MG Tablet PO (10:04)
[2020-07-14] MEDS: amLODIPine 10 MG Tablet PO (10:04)
[2020-07-14] MEDS: Famotidine 20 MG Tablet PO (10:05)
[2020-07-14] MEDS: Senna/Docusate Sodium 1 Tablet 2 TABLET PO (10:05)
--- NOTE | 2020-07-14 11:17 | NURSING ---
wrap off knee and only 2 small drops fresh noted at incision line. new aquacel silver applied and rewrapped with fresh bernardo. will monitor.
[2020-07-14 13:00] VITALS: BP 136/87; PULSE 62; RESP 18; TEMP 36.6; O2SAT 97
--- NOTE | 2020-07-14 13:35 | PHA.DC.MC ---
Pharmacy Service has performed discharge medication reconciliation and counseling for this patient. 1. ACETAMINOPHEN 1000MG PO Q8H 2. ASPIRIN 81MG PO BIDCM 3. FAMOTIDINE 20MG PO DAILY 4. OXYCODONE 5-10MG PO Q4H PRN PAIN 4-10 FOR 5 DAYS 5. MORPHINE SR 15MG PO BID X 3 DAYS 6. SENNA/DOCUSATE 2T PO BID UNTIL FIRST BM, THEN PRN CONSTIPATION The patient's discharge medication list was reviewed for discrepancies and discrepancies were resolved. Home Medications Amlodipine Besylate [Norvasc] 10 mg PO DAILY 05/07/17 Levothyroxine [Synthroid] 25 mcg PO DAILY 05/07/17 Cholecalciferol (VIT D3) [Vitamin D3] 1,000 unit PO DAILY 03/01/20 Meloxicam 15 mg PO DAILY #0 03/23/20 Acetaminophen [Tylenol] 1,000 mg PO Q8H #100 tab 07/14/20 Aspirin [Aspirin, Baby] 81 mg PO BID #60 tab 07/14/20 Famotidine [Pepcid] 20 mg PO DAILY #30 tab 07/14/20 Oxycodone [Oxyir] 5 - 10 mg PO Q4H PRN PRN 5 Days #60 tab 07/14/20 Senna/Docusate Sodium [Senokot-S] 2 tab PO BID #10 tab 07/14/20 morphine SR tablet [Ms Contin] 15 mg PO BID 3 Days #6 tab 07/14/20 The patient was counseled on the following discharge medications and changes in medications for homegoing were reviewed. The Reason for Use, instructions for use, and potential side effects were reviewed for all new medications. The patient's questions regarding all of their medications were answered. The patient was able to verbally demonstrate an understanding of their discharge medications. Patient counseled by cert pharmacy tech
== END 2020-07-14 13:01 | disposition home or self-care (01) | DRG 470 ==
LOC: SDC 08:28 → MS3 22:52
PROVIDERS: Anesthesiology; Admitting Provider Specialist; PCP Student in an Organized Health Care Education/Training Program; Referring Provider Specialist; Visit Provider Family Medicine
PROC: 0SRD0JZ Replacement of Left Knee Joint with Synthetic Substitute, Open Approach (ICD-10-PCS; CPT 27447; principal; 2020-07-12 07:00)
DX: M17.12 Unilateral primary osteoarthritis, left knee (principal); Z96.651 Presence of right artificial knee joint; I10 Essential (primary) hypertension; Z87.891 Personal history of nicotine dependence; Z79.899 Other long term (current) drug therapy; E03.9 Hypothyroidism, unspecified; R60.0 Localized edema; D72.828 Other elevated white blood cell count; Z91.19 Patient's noncompliance with other medical treatment and regimen; T81.89XA Other complications of procedures, not elsewhere classified, initial encounter
CPT/HCPCS: 36415; 73560; 80048; 82962; 83735; 84443; 85025; 85027; 87081; 87426; 97110; 97162; 97166; 97530; 97535; 99251; C1713; C1776; C9803; J7120; A4216; G0463

== ENCOUNTER → 2020-07-26 10:58 | Outpatient (CLI) | payer MEDICARE, OTHER, SELFPAY ==
[2020-07-12 06:16] VITALS: BMI 36.9
--- NOTE | 2020-07-26 11:02 | VDLE_ITS ---
Reason For Study: Pain RIGHT LEFT CFV is compressible, spontaneous, phasic, GSV is normal. competent and demonstrates normal CFV is compressible, spontaneous, phasic, augmentation. competent, and demonstrates normal Procedure augmentation. Exam performed in department. FV is compressible, spontaneous, phasic, A preliminary report was called and/or faxed competent and demonstrates normal to Pardeep HERNANDEZ. augmentation. POP V is compressible, spontaneous, phasic, competent and demonstrates normal augmentation. T/P Trunk is compressible. PTV is compressible. LT PerV is compressible. Interpretation Summary There is no evidence of left lower extremity deep vein thrombosis. Left great saphenous vein appears patent and compressible segmentally. Patent and compressible right common femoral vein Ordering Physician: Pardeep Ramos Referring Physician: Tres Lopez Performed By: Татьяна Jacques, VIKTORIA, RVT
== END ==
PROVIDERS: PCP Student in an Organized Health Care Education/Training Program; Referring Provider Physician Assistant Surgical; Visit Provider Physician Assistant Surgical
DX: M79.662 Pain in left lower leg (principal)
CPT/HCPCS: 93971

== ENCOUNTER 2024-11-30 17:11 | Outpatient (CLI) | payer MEDICARE, SELFPAY ==
--- NOTE | 2024-11-30 17:15 | CT_ITS ---
PROCEDURE: EXTREMITY LOWER WITHOUT CONTRA 11/30/2024 REASON FOR EXAM: RIGHT HIP PAIN Status post right total hip replacement. TECHNIQUE: Axial CT images of the right hip obtained without intravenous contrast. Coronal and Sagittal reconstruction series were provided. CONTRAST: None One or more dose reduction techniques were used (e.g., Automated exposure control, adjustment of the mA and/or kV according to patient size, use of iterative reconstruction technique). RADIATION DOSE SUMMARY: CTDlvol: 16.79 mGy DLP: 654.12 mGycm COMPARISON: None FINDINGS: Bones: No fracture or dislocation. 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 Joints: Status post right total hip replacement. There is good alignment. No evidence of loosening. Soft Tissues: No soft tissue mass. CT/Extremity Lower without Contra IMPRESSION: Status post right total hip replacement. There is good alignment. No fracture or dislocation. Reading Location: [place] [id number]
== END 2024-11-30 23:59 | disposition home or self-care (01) ==
LOC: CT 17:13
PROVIDERS: PCP Student in an Organized Health Care Education/Training Program; Referring Provider Specialist; Visit Provider Specialist
DX: M70.71 Other bursitis of hip, right hip (principal); M25.851 Other specified joint disorders, right hip; Z96.641 Presence of right artificial hip joint
CPT/HCPCS: 73700; 76377